=== PATIENT | male | born 1990 | race African-American/Black ===

== ENCOUNTER 2024-01-04 08:31 | Inpatient (IN) | payer OTHER, SELFPAY ==
[2024-01-04] VITALS (14 sets, daily range): BP systolic 139–170; BP diastolic 72–98; PULSE 68–84; RESP 14–18; TEMP 36.6–37.1; O2SAT 96–100; BMI 25.8; BMI 27.6
--- NOTE | ~2024-01-04 | CT_ITS ---
EXAMINATION: CT ABDOMEN AND PELVIS WITH CONTRAST CLINICAL INFORMATION: Lower abdominal pain COMPARISON: None available. TECHNIQUE: Multidetector volumetric images were obtained from the superior aspect of the liver through the pubic symphysis following administration 85 mL of Omnipaque 350 intravenous contrast. Sagittal and coronal reformatted images were obtained on the technologist's workstation. Oral contrast: No This CT examination was performed using dose optimization techniques as appropriate, variously including the following: *Automated exposure control *Adjustment of mA and/or kV according to patient size (this includes techniques or standardized protocols for targeted exams where dose is matched to indication/reason for exam; i.e. extremities or head) *Use of iterative reconstruction technique DLP: 402 mGy-cm FINDINGS: LUNG BASES: The visualized lung bases are unremarkable. LIVER, GALLBLADDER, AND BILIARY TREE: The liver is diffusely low in attenuation compatible with steatosis with some sparing adjacent to the gallbladder. No biliary ductal dilatation is evident. The gallbladder is unremarkable with no evidence of radiopaque gallstones, gallbladder wall thickening, or obvious pericholecystic inflammatory changes. PANCREAS: The pancreatic head appears edematous. There is infiltration about the pancreatic head extending posteriorly about the duodenum and into the retroperitoneum. The pancreatic tail appears atrophic. The pancreatic duct is dilated in the tail, measuring up to 10 mm. SPLEEN: Unremarkable. ADRENAL GLANDS: Unremarkable. KIDNEYS AND URETERS: The kidneys are normal in size, shape, and attenuation. No hydronephrosis, hydroureter, or calculi seen. No perinephric stranding. A retroaortic left renal vein is incidentally noted. BLADDER: Unremarkable. GASTROINTESTINAL TRACT: The small and large bowel are unremarkable. The appendix is identified. ABDOMINAL WALL: No significant hernia is appreciated. LYMPH NODES: Normal. VASCULAR: Unremarkable. PELVIC VISCERA: Unremarkable. OSSEOUS STRUCTURES: Unremarkable. CT/CT abdomen pelvis w IV con IMPRESSION: 1. Edematous pancreatic head with surrounding inflammatory change, suspicious for acute pancreatitis. However, pancreatic carcinoma could have a similar appearance. Suggest close follow-up to confirm clearing and pancreatic MRI if symptoms persist. 2. Atrophic pancreatic tail with dilated pancreatic duct, perhaps the sequela of chronic pancreatitis. 3. Marked Hepatic steatosis. Fleischner guidelines were followed. Electronically signed by: Pino Nur MD 01/04/2024 12:12 PM [facility]
[2024-01-04 09:11] LABS: MANUAL DIFF FLAG NO
[2024-01-04 09:17] LABS: Basophils Absolute Auto 0.1 X10*3/uL (0.0-0.2); Basophils Percent Auto 1.4 % (0-2); Eosinophils Absolute Auto 0.1 X10*3/uL (0.0-0.4); Eosinophils Percent Auto 2.2 % (0-4); Hematocrit 42.6 % (42.0-52.0); Hemoglobin 14.8 g/dl (14.0-18.0); Imm Gran Abs Auto 0.01 X10*3/uL (0.00-0.03); Imm Gran Pct Auto 0.2 % (0.0-0.4); Lymphocytes Absolute Auto 1.9 X10*3/uL (1.2-4.9); Lymphocytes Percent Auto 37.6 % (20-40); Mean Corpuscular HGB Conc 34.7 g/dl (31.0-36.0); Mean Corpuscular Hemoglobin 32.5 pg (27.0-33.0); Mean Corpuscular Volume 93.4 fL (80.0-98.0); Mean Platelet Volume 9.9 fL (9.4-12.4); Monocytes Absolute Auto 0.6 X10*3/uL (0.1-1.2); Monocytes Percent Auto 11.1 % (2-11); Neutrophils Absolute Auto 2.4 x10*3/uL (2.0-8.3); Neutrophils Percent Auto 47.5 % (45-73); Platelet Count 210 X10*3/uL (160-400); Red Blood Count 4.56 X10*6/uL (4.60-5.80); Red Cell Distribution Width 14.2 % (11.0-16.0); White Blood Count 5.1 X10*3/uL (4.8-10.8)
[2024-01-04 09:39] LABS: Alanine Aminotransferase 289 U/L (0-40); Albumin Level 4.7 g/dL (3.5-5.0); Alkaline Phosphatase 67 U/L (39-117); Anion Gap 18 (12-20); Aspartate Amino Transferase 280 U/L (5-37); Bilirubin Direct 0.2 mg/dL (0.0-0.5); Bilirubin Total 0.6 mg/dL (0.0-1.0); Blood Urea Nitrogen 15 mg/dL (9-16); Calcium 9.8 mg/dL (8.4-10.2); Carbon Dioxide 22 mmol/L (22-29); Chloride 102 mmol/L (96-108); Creatinine Clr Calc Pharmacy 124.7; Estimated Glomerular Filt Rate > 60; Glucose Random 112 mg/dL (60-115); Lipase 72 U/L (8-78); Potassium 4.7 mmol/L (3.3-5.1); Sodium 137 mmol/L (135-145); Total Protein 8.2 g/dL (6.5-8.0)
[2024-01-04 09:40] LABS: Lactic Acid 2.6 mmol/L (0.5-2.0)
--- NOTE | 2024-01-04 10:30 | ED.GENADULT ---
HPI - General Adult General Chief complaint: Abdominal Pain Stated complaint: High blood sugar, abd pain Time Seen by Provider: 01/04/24 10:29 Source: patient Mode of arrival: ambulatory Limitations: no limitations History of Present Illness ED Provider: Yahaira Cheney PA-C HPI narrative: Patient is a 33 year old assigned male at with a history of alcohol abuse and chronic pancreatitis presenting to the emergency department today with abdominal pain, diarrhea, and vomiting. Patient states that he was sober for awhile and restarted drinking on 12/31/2023. Patient states that he began to have abdominal pain, nausea, and vomiting last night into today. Patient denies any dizziness, lightheadedness, fever, chills, blurry vision, double vision, loss of vision, chest pain, difficulty breathing, shortness of breath, back pain, night sweats, pain with urination, increased urinary frequency, increased urinary urgency, blood in his urine or stool, syncope or a near syncopal episode, recent trauma or falls, bowel incontinence, bladder incontinence, or any other complaints at this time. Relieving factors: none Exacerbating factors: none Associated symptoms: nausea/vomiting Treatments prior to arrival: none Related Data Home Medications ?Medication ?Instructions ?Recorded ?Confirmed amlodipine 5 mg tablet 5 mg PO DAILY 01/04/24 01/04/24 insulin aspart U-100 100 unit/mL 2 - 10 unit subcut TID 01/04/24 01/04/24 (3 mL) subcutaneous pen (Novolog FlexPen U-100 Insulin aspart) insulin glargine 100 unit/mL (3 3 unit subcut BEDTIME 01/04/24 01/04/24 mL) subcutaneous pen (Lantus Solostar U-100 Insulin) omeprazole 20 mg capsule,delayed 20 mg PO DAILY@0630 01/04/24 01/04/24 release Allergies Allergy/AdvReac Type Severity Reaction Status Date / Time No Known Allergies Allergy Verified 01/04/24 08:54 Review of Systems Constitutional: Constitutional: Reports no additional constitutional complaints, Denies chills, Denies fever(s) and Denies night sweats Eyes: Eyes: Reports no additional eye complaints, Denies blurry vision, Denies change in vision, Denies diplopia, Denies eye discharge, Denies loss of vision and Denies eye pain ENT: Denies dizziness Cardiovascular: Cardiovascular: Reports no additional cardiovascular complaints, Denies chest pain, Denies lightheadedness, Denies Loss of Consciousness and Denies dyspnea Respiratory: Respiratory: Reports no additional respiratory complaints and Denies dyspnea Gastrointestinal: Gastrointestinal: Reports no additional gastrointestinal complaints, Reports abdominal pain, Denies melena, Denies hematochezia, Denies change in bowel habits, Denies change in stool character, Reports nausea and Reports vomiting Genitourinary: Genitourinary: Reports no additional male genitourinary complaints, Denies hematuria, Denies oliguria, Denies difficulty urinating, Denies dysuria, Denies urinary frequency, Denies urinary hesitancy, Denies urinary incontinence and Denies urinary urgency Musculoskeletal: Musculoskeletal: Reports no additional musculoskeletal complaints, Denies numbness and Denies tingling Neurologic: Denies dizziness, Denies loss of vision, Denies numbness and Denies tingling Psychiatric: Psychiatric: Reports no additional psychiatric complaints Endocrine: Endocrine: Reports no additional endocrine complaints Hematologic/Lymphatic: Hematologic/Lymphatic: Reports no additional hematologic/lymphatic complaints Allergic/Immunologic: Allergic/Immunologic: Reports no additional allergic/immunologic complaints PMFSH Past Medical History Attestation statement: The following information was validated with the patient. Source: old records reviewed and nursing notes reviewed Social History Social History Smoked in Last 30 Days: Yes Use of substances other than those prescribed or required for medical reasons: No Advance Directives: No Advance Directives Information Provided: Yes Do you have a plan to hurt others: No Plan Physical Exam ED Vital Signs: Vital Signs - 24 hr 01/04/24 08:51 01/04/24 11:06 01/04/24 11:32 Temperature 98.2 F 98.6 F Pulse Rate 80 72 Respiratory Rate 18 16 14 Blood Pressure 151/98 H 144/91 H Pulse Oximetry 100 100 Oxygen Delivery Method Room Air Room Air 01/04/24 11:45 01/04/24 12:54 Temperature 98.2 F Pulse Rate 78 Respiratory Rate 18 16 Blood Pressure 140/89 H Pulse Oximetry 100 Oxygen Delivery Method Room Air BMI result Body Mass Index 25.8 Const General: cooperative, no acute distress, alert and awake Nutritional Appearance: well nourished Orientation/consciousness: patient oriented x3 Limitations: no limitations HENMT Head: Yes normal to inspection and Yes atraumatic Ears: hearing grossly normal bilaterally and external ears normal General nose exam: Normal external nose present, no nasal discharge noted and no epistaxis Face and sinus: Yes normal facial exam, No abrasion and No laceration Mouth: Normal oral and palatal mucosa present, no drooling and no muffled voice Eyes General: appearance normal, both eyes and all related structures Periorbital: periorbital findings normal Eyelids: Yes eyelids normal Conjunctivae: conjunctivae normal Pupils: Equal, round and reactive pupils present EOM: EOMs intact bilaterally Neck Neck: Yes normal visual inspection, Yes full ROM and Yes no lymphadenopathy Chest Chest palpation & inspection: normal inspection of the chest Resp Effort & Inspection: normal respiratory effort and able to speak in complete sentences GI Inspection: Yes normal to inspection Palpation (GI): Soft to palpation, not firm, nontender, no guarding and not rigid Neuro General: patient oriented x3 and moves all extremities Cranial nerves: Yes Equal, round and reactive pupils present Cognition (Neuro): normal cognition Extrem General: Yes normal to inspection, Yes full ROM and Yes capillary refill normal Psych Appearance: grossly normal Mental Status: mental status grossly normal Affect: normal affect Attitude: cooperative Thought process: Normal thought process present Thought content: Normal thought content present Insight: Good insight present (Psych) Medications Administered Generic Name Dose Route Start Last Admin Trade Name Elodia PRN Reason Stop Dose Admin Phenobarbital Sodium 198 mg 01/04/24 15:00 01/04/24 14:50 Phenobarbital Sodium 130 Mg/Ml Vial Im Q3hx2 IM 01/04/24 18:01 198 mg Q3H ONOFRE Administration Discontinued Medications Generic Name Dose Route Start Last Admin Trade Name Elodia PRN Reason Stop Dose Admin Hydromorphone HCl 1 mg 01/04/24 11:34 01/04/24 11:45 Hydromorphone Hcl 1 Mg/Ml Syringe IVPUSH 01/04/24 11:35 1 mg ONCE ONE Administration Protocol Hydromorphone HCl 1 mg 01/04/24 12:32 01/04/24 12:51 Hydromorphone Hcl 1 Mg/Ml Syringe IVPUSH 01/04/24 12:33 1 mg ONCE ONE Administration Protocol Sodium Chloride 1,000 mls @ 999 mls/hr 01/04/24 11:00 01/04/24 12:56 Ns IV 01/04/24 12:00 Infused .Q1H1M ONOFRE Infusion Iohexol 85 ml 01/04/24 11:21 01/04/24 11:21 Iohexol 350 Mg/Ml 75 Ml Infus..Btl IV 01/04/24 11:22 85 ml ONCE ONE Administration Lorazepam 1 mg 01/04/24 10:46 01/04/24 11:08 Lorazepam 2 Mg/Ml Vial IVPUSH 01/04/24 10:47 1 mg ONCE ONE Administration Morphine Sulfate 4 mg 01/04/24 10:46 01/04/24 11:06 Morphine Sulfate 4 Mg/Ml Cartridge IVPUSH 01/04/24 10:47 4 mg ONCE ONE Administration Protocol Ondansetron HCl 4 mg 01/04/24 10:46 01/04/24 11:06 Ondansetron Hcl 4 Mg/2 Ml Vial IVPUSH 01/04/24 10:47 4 mg ONCE ONE Administration Pantoprazole Sodium 40 mg 01/04/24 11:34 01/04/24 11:44 Pantoprazole Sodium 40 Mg/10 Ml Vial IVPUSH 01/04/24 11:35 40 mg ONCE ONE Administration Phenobarbital Sodium 265 mg 01/04/24 11:00 01/04/24 11:44 Phenobarbital Sodium 130 Mg/Ml Im Once IM 01/04/24 11:01 265 mg ONCE ONE Administration Sucralfate 1 gm 01/04/24 11:34 01/04/24 11:45 Sucralfate 1 Gm Tablet PO 01/04/24 11:35 1 gm ONCE ONE Administration Medical Decision Making Medical Decision Making [facility] Narrative: Patient is a 33 year old assigned male at with a history of alcohol abuse and chronic pancreatitis presenting to the emergency department today with abdominal pain, diarrhea, and vomiting. Patient's physical exam was as noted in the physical exam portion of this note. Patient's blood work showed an elevated initial lactic of 2.6 as well as elevated LFTs (AST 280, ALT 289). Patient's CT abd/pelvis showed evidence of acute on chronic pancreatitis. I consulted with GI who agreed with my plan of medical admission for acute on chronic pancreatitis and alcohol withdrawal. I spoke to the hospitalist team who agreed to admission. I explained my physical exam findings as well as all test results to the patient. I answered all questions asked by the patient. Patient received multiple doses of IV pain medication which, upon re-evaluation, he stated it helped his symptoms significantly. Patient verbalized agreement and understanding with this treatment plan and admission. Differential Diagnosis Differential Diagnoses: The differential diagnosis associated with the presentation includes Acute on chronic pancreatitis Abdominal pain Nausea Vomiting Admission/Observation Consideration of admission/observation: Escalation of care including admission/observation considered Patient admitted. Consult Healthcare Provider Management of the patient was discussed with: Hospitalist (agreed to admission as noted in the MDM Rationale portion of this note.) and [employer] (spoke to GI as noted in the MDM Rationale portion of this note.) Lab Data [facility] Lab Attestation statement: I reviewed the patient's lab results. My interpretation of these results are in the MDM Rationale portion of this note. 01/04/24 09:07 01/04/24 09:07 Labs: Lab Results 01/04/24 01/04/24 01/04/24 Range/Units 09:06 09:07 12:08 WBC 5.1 (4.8-10.8) X10*3/uL RBC 4.56 L (4.60-5.80) X10*6/uL Hgb 14.8 (14.0-18.0) g/dl Hct 42.6 (42.0-52.0) % MCV 93.4 (80.0-98.0) fL MCH 32.5 (27.0-33.0) pg MCHC 34.7 (31.0-36.0) g/dl RDW 14.2 (11.0-16.0) % Plt Count 210 (160-400) X10*3/uL MPV 9.9 (9.4-12.4) fL Immature Gran % (Auto) 0.2 (0.0-0.4) % Neut % (Auto) 47.5 (45-73) % Lymph % (Auto) 37.6 (20-40) % Door % (Auto) 11.1 H (2-11) % Eos % (Auto) 2.2 (0-4) % Baso % (Auto) 1.4 (0-2) % Lymph # (Auto) 1.9 (1.2-4.9) X10*3/uL Door # (Auto) 0.6 (0.1-1.2) X10*3/uL Eos # (Auto) 0.1 (0.0-0.4) X10*3/uL Baso # (Auto) 0.1 (0.0-0.2) X10*3/uL Abs Immat Gran (auto) 0.01 (0.00-0.03) X10*3/uL Absolute Neuts (auto) 2.4 (2.0-8.3) x10*3/uL Absolute Nucleated RBC 0.000 (0.0-0.012) X10*3/uL Nucleated RBC % (auto) 0.0 (0.0-0.2) /100WBC Sodium 137 (135-145) mmol/L Potassium 4.7 (3.3-5.1) mmol/L Chloride 102 (96-108) mmol/L Carbon Dioxide 22 (22-29) mmol/L Anion Gap 18 (12-20) BUN 15 (9-16) mg/dL Creatinine 0.78 (0.5-1.4) mg/dL Estim Creat Clear Calc 124.7 Estimated GFR > 60 POC Glucose 92 (60-115) mg/dL Random Glucose 112 (60-115) mg/dL Lactic Acid 2.6 H* (0.5-2.0) mmol/L Lactic Acid F/U @ 2Hr (0.5-2.0) mmol/L Calcium 9.8 (8.4-10.2) mg/dL Total Bilirubin 0.6 (0.0-1.0) mg/dL Direct Bilirubin 0.2 (0.0-0.5) mg/dL AST 280 H (5-37) U/L ALT 289 H (0-40) U/L Alkaline Phosphatase 67 (39-117) U/L Total Protein 8.2 H (6.5-8.0) g/dL Albumin 4.7 (3.5-5.0) g/dL Amylase 63 (28-100) U/L Lipase 72 (8-78) U/L 01/04/24 Range/Units 13:48 WBC (4.8-10.8) X10*3/uL RBC (4.60-5.80) X10*6/uL Hgb (14.0-18.0) g/dl Hct (42.0-52.0) % MCV (80.0-98.0) fL MCH (27.0-33.0) pg MCHC (31.0-36.0) g/dl RDW (11.0-16.0) % Plt Count (160-400) X10*3/uL MPV (9.4-12.4) fL Immature Gran % (Auto) (0.0-0.4) % Neut % (Auto) (45-73) % Lymph % (Auto) (20-40) % Door % (Auto) (2-11) % Eos % (Auto) (0-4) % Baso % (Auto) (0-2) % Lymph # (Auto) (1.2-4.9) X10*3/uL Door # (Auto) (0.1-1.2) X10*3/uL Eos # (Auto) (0.0-0.4) X10*3/uL Baso # (Auto) (0.0-0.2) X10*3/uL Abs Immat Gran (auto) (0.00-0.03) X10*3/uL Absolute Neuts (auto) (2.0-8.3) x10*3/uL Absolute Nucleated RBC (0.0-0.012) X10*3/uL Nucleated RBC % (auto) (0.0-0.2) /100WBC Sodium (135-145) mmol/L Potassium (3.3-5.1) mmol/L Chloride (96-108) mmol/L Carbon Dioxide (22-29) mmol/L Anion Gap (12-20) BUN (9-16) mg/dL Creatinine (0.5-1.4) mg/dL Estim Creat Clear Calc Estimated GFR POC Glucose (60-115) mg/dL Random Glucose (60-115) mg/dL Lactic Acid (0.5-2.0) mmol/L Lactic Acid F/U @ 2Hr 1.0 (0.5-2.0) mmol/L Calcium (8.4-10.2) mg/dL Total Bilirubin (0.0-1.0) mg/dL Direct Bilirubin (0.0-0.5) mg/dL AST (5-37) U/L ALT (0-40) U/L Alkaline Phosphatase (39-117) U/L Total Protein (6.5-8.0) g/dL Albumin (3.5-5.0) g/dL Amylase (28-100) U/L Lipase (8-78) U/L Independent Interpretation I performed an independent interpretation of an: CT Scan Interpretation: My interpretation is in agreement with the radiologist's impression of this imaging study. EXAMINATION: CT ABDOMEN AND PELVIS WITH CONTRAST CLINICAL INFORMATION: Lower abdominal pain COMPARISON: None available. TECHNIQUE: Multidetector volumetric images were obtained from the superior aspect of the liver through the pubic symphysis following administration 85 mL of Omnipaque 350 intravenous contrast. Sagittal and coronal reformatted images were obtained on the technologist's workstation. Oral contrast: No This CT examination was performed using dose optimization techniques as appropriate, variously including the following: *Automated exposure control *Adjustment of mA and/or kV according to patient size (this includes techniques or standardized protocols for targeted exams where dose is matched to indication/reason for exam; i.e. extremities or head) *Use of iterative reconstruction technique DLP: 402 mGy-cm FINDINGS: LUNG BASES: The visualized lung bases are unremarkable. LIVER, GALLBLADDER, AND BILIARY TREE: The liver is diffusely low in attenuation compatible with steatosis with some sparing adjacent to the gallbladder. No biliary ductal dilatation is evident. The gallbladder is unremarkable with no evidence of radiopaque gallstones, gallbladder wall thickening, or obvious pericholecystic inflammatory changes. PANCREAS: The pancreatic head appears edematous. There is infiltration about the pancreatic head extending posteriorly about the duodenum and into the retroperitoneum. The pancreatic tail appears atrophic. The pancreatic duct is dilated in the tail, measuring up to 10 mm. SPLEEN: Unremarkable. ADRENAL GLANDS: Unremarkable. KIDNEYS AND URETERS: The kidneys are normal in size, shape, and attenuation. No hydronephrosis, hydroureter, or calculi seen. No perinephric stranding. A retroaortic left renal vein is incidentally noted. BLADDER: Unremarkable. GASTROINTESTINAL TRACT: The small and large bowel are unremarkable. The appendix is identified. ABDOMINAL WALL: No significant hernia is appreciated. LYMPH NODES: Normal. VASCULAR: Unremarkable. PELVIC VISCERA: Unremarkable. OSSEOUS STRUCTURES: Unremarkable. CT/CT abdomen pelvis w IV con IMPRESSION: 1. Edematous pancreatic head with surrounding inflammatory change, suspicious for acute pancreatitis. However, pancreatic carcinoma could have a similar appearance. Suggest close follow-up to confirm clearing and pancreatic MRI if symptoms persist. 2. Atrophic pancreatic tail with dilated pancreatic duct, perhaps the sequela of chronic pancreatitis. 3. Marked Hepatic steatosis. Fleischner guidelines were followed. Electronically signed by: Pino Nur MD 01/04/2024 12:12 PM [facility] Dictated By: Pino Nur MD Signed By: Electronically signed by Pino Nur MD 01/04/24 1212 Radiology Impression Discussion of test interpretation with radiology: I have reviewed the radiologist's reading. Critical Care Time Critical Care Time Critical Care Time: Yes Total Critical Care Time: 47 Attestation: I spent 47 minutes of Critical Care Time with this patient. This does not include time spent on separately reported billable procedures. Discharge Plan Discharge Clinical Impression: Acute on chronic pancreatitis, Alcohol withdrawal Patient Disposition: Admitted As Inpatient
--- NOTE | 2024-01-04 10:41 | PC.NURSE ---
Pt presents to ED from home, reports LUQ ABD pain and N/V for past 2 days, has hx of pancreatitis and reports it feels like that. Denies daily drinking, report he drank some alcohol on Wednesday and thinks that triggers it. Pain 10/10 in LUQ. Alert and oriented, breathing even and unlabored, skin warm and slightly clammy.
[2024-01-04] MEDS: 0.9 % Sodium Chloride 1,000 ML 999 ML IV (11:06)
[2024-01-04] MEDS: ondansetron HCL 4 MG/2 ML VIAL IVPUSH (11:06)
[2024-01-04] MEDS: Morphine Sulfate 4 MG/ML CARTRIDGE IVPUSH (11:06)
[2024-01-04] MEDS: LORazepam 2 MG/ML VIAL 1 MG IVPUSH (11:08)
[2024-01-04 11:09] LABS: Reflex Lactate? Lactic Acid Added
[2024-01-04] MEDS: iohexoL 350 MG/ML 75 ML INFUS..BTL 85 ML IV (11:21)
[2024-01-04] MEDS: Pantoprazole Sodium 40 MG/10 ML VIAL IVPUSH (11:44)
[2024-01-04] MEDS: PHENobarbitaL sodium 130 MG/ML IM ONCE 265 MG IM (11:44)
[2024-01-04] MEDS: HYDROmorphone HCl 1 MG/ML SYRINGE IVPUSH ×3 (11:45→20:06)
[2024-01-04] MEDS: Sucralfate 1 GM TABLET PO (11:45)
[2024-01-04 12:13] LABS: Glucose, Whole Blood 92 mg/dL (60-115)
[2024-01-04 12:48] LABS: Amylase 63 U/L (28-100)
--- NOTE | 2024-01-04 12:55 | PC.NURSE ---
Addendum entered by Kermit Acevedo 01/04/24 14:06: HIS POC AT 1208 WAS 92 Original Note: PT OFFERED CLEAR LIQUIDS, HE REPORTS HIS BLOOD SUGAR IS TRENDING DOWN,
--- NOTE | 2024-01-04 13:54 | PHA.MEDREC ---
Addendum entered by Romeo Stephens 01/04/24 13:57: reviewed Original Note: Pharmacy Consult ? Medication Reconciliation Pharmacy has completed the medication reconciliation. Spoke to patient to confirm med list. Patient states he is no longer taking Acamprosate 666 cmg, Lisinopril-HCTZ 20/25mg, Vitamin B6, Vitamin B1.
[2024-01-04] MEDS: PHENobarbitaL sodium 130 MG/ML VIAL IM Q3Hx2 198 MG IM ×2 (14:50→17:49)
--- NOTE | 2024-01-04 15:19 | PM.IMHP ---
History of Present Illness Date of Service: 01/04/24 Chief Complaint: pain abdominal pain A 33-year-old male with a history of alcohol use disorder, consuming approximately 20 nips of vodka daily, and a prior history of alcohol withdrawal seizures, presents with severe abdominal pain that began yesterday. The pain is localized to the epigastric region and is associated with nausea, vomiting, and one episode of diarrhea. Lab work revealed a normal lipase level, but a CT scan of the abdomen and pelvis showed inflammatory changes around the pancreas, consistent with acute pancreatitis. The patient is currently unable to tolerate oral intake . Review of Systems Review of Systems: Gen: no fever Resp: no sob, no cough CV: no chest, no SAGE, no leg edema GI: No n/v, no abd pain Neuro: No confusion Yes all other systems are reviewed and are negative [facility] Social History Household Members: Spouse Housing: House Patient Tobacco Use Status: Current everyday Tobacco user Tobacco use type: Cigarette Smoked in Last 30 Days: Yes e-Cigarette/Vaping Use: Former Use Patient Interested in Nicotine Replacement: No Patient Given Instructions on How to Stop Smoking: No Second Hand Smoke Exposure: No Use of substances other than those prescribed or required for medical reasons: Yes Substance Use Type: Marijuana Substance Use Frequency: Monthly Last Used Substance: Weeks (ago) Currently Displaying Signs/Symptoms of Drug Intoxication Withdrawal: No Any prior treatment program specific to substance use: No Have you been hit, kicked, punched, or otherwise hurt by someone within the past year? If so, by whom?: No Do you feel safe in your current relationship?: Yes Is there a partner from a previous relationship who is making you feel unsafe now?: No Are you made to feel afraid or neglected: No Advance Directives: No Advance Directives Information Provided: Yes Do you have a plan to hurt others: No Plan Recently lost weight without trying: No Eating poorly because of decreased appetite: No Nutrition Risks: No Nutritional Risk Poor oral hygiene: No service: No Meds Allergies Allergy/AdvReac Type Severity Reaction Status Date / Time No Known Allergies Allergy Verified 01/04/24 08:54 Active Medications: Current Medications Acetaminophen (Acetaminophen 325 Mg Tablet) 650 mg PO Q6H PRN PRN Reason: Pain, Mild (Pain Scale 1-3), fever or headache Al Hydroxide/Mg Hydroxide (Magnesium Hydrox/Alum Hydrox 30 Ml Oral.Susp) 30 ml PO Q4H PRN PRN Reason: Heartburn Amlodipine Besylate (Amlodipine Besylate 5 Mg Tablet) 5 mg PO DAILY [facility]; Protocol Calcium Carbonate (Calcium Carbonate 750 Mg Tab.Chew) 750 mg PO Q4H PRN PRN Reason: Heartburn Glucose (Glucose Gel 15 Gm Gel..Gram.) 15 gm PO Q15M PRN; Protocol PRN Reason: per Hypoglycemia Standing Ord. Hydromorphone HCl (Hydromorphone Hcl 1 Mg/Ml Syringe) 0.5 mg IVPUSH Q4H PRN; Protocol PRN Reason: Pain, Severe (Pain Scale 7-10) Dextrose (D10) 250 mls @ 750 mls/hr IV Q15M PRN; Protocol PRN Reason: per Hypoglycemia Standing Ord. Lactated Ringer's (Lr) 1,000 mls @ 150 mls/hr IVCONT .Q6H40M [facility] Insulin Human Lispro (Insulin Lispro 100 Unit/Ml 3 Ml Vial) 0 unit SUBCUT QIDACHS [facility]; Protocol Magnesium Hydroxide (Milk Of Magnesia 30 Ml Oral.Susp) 30 ml PO DAILY PRN PRN Reason: Constipation Melatonin (Melatonin 3 Mg Tablet) 6 mg PO BEDTIME PRN PRN Reason: Insomnia Omeprazole (Omeprazole 20 Mg Capsule.Dr) 20 mg PO DAILY@0630 [facility] Ondansetron HCl (Ondansetron Hcl 4 Mg/2 Ml Vial) 4 mg IVPUSH Q8H PRN PRN Reason: Nausea and Vomiting Pharmacy Consult (Consult Rx Etoh Phenob Im/Po) 1 each MISCELLANE ONCE PRN; Protocol PRN Reason: Consult order Pharmacy Consult (Consult Rx Etoh Phenob Im/Po) 1 each MISCELLANE ONCE PRN; Protocol PRN Reason: Consult order Phenobarbital (Phenobarbital 15 Mg Tablet) 45 mg PO BID [facility] Stop: 01/06/24 21:01 Phenobarbital (Phenobarbital 15 Mg Tablet) 15 mg PO BID [facility] Stop: 01/08/24 21:01 Phenobarbital (Phenobarbital 15 Mg Tablet) 15 mg PO DAILY [facility] Stop: 01/10/24 09:01 Phenobarbital Sodium (Phenobarbital Sodium 130 Mg/Ml Vial Im Q3hx2) 198 mg IM Q3H [facility] Stop: 01/04/24 18:01 Last Admin: 01/04/24 14:50 Dose: 198 mg Polyethylene Glycol (Polyethylene Glycol 3350 17 Gm Powd.Pack) 17 gm PO DAILY PRN PRN Reason: Constipation Sodium Chloride (0.9 % Sodium Chloride Flush 3 Ml Syringe) 3 ml IVFLUSH QSHIFT [facility] Home Medications ?Medication ?Instructions ?Recorded ?Confirmed ?Last Taken ?Type amlodipine 5 mg tablet 5 mg PO DAILY 01/04/24 01/04/24 01/03/24 History insulin aspart U-100 100 unit/mL 2 - 10 unit subcut TID 01/04/24 01/04/24 01/03/24 History (3 mL) subcutaneous pen (Novolog FlexPen U-100 Insulin aspart) insulin glargine 100 unit/mL (3 3 unit subcut BEDTIME 01/04/24 01/04/24 01/03/24 History mL) subcutaneous pen (Lantus Solostar U-100 Insulin) omeprazole 20 mg capsule,delayed 20 mg PO DAILY@0630 01/04/24 01/04/24 01/03/24 History release Physical Exam Vital Signs and Narrative: Vital Signs: Last Vital Signs Temp 98.1 F 01/04/24 14:22 Pulse 74 01/04/24 14:22 Resp 16 01/04/24 14:22 BP 139/86 01/04/24 14:22 Pulse Ox 99 01/04/24 14:22 O2 Del Method Room Air 01/04/24 14:22 BMI result Body Mass Index 25.8 Results Labs 01/04/24 09:07 01/04/24 09:07 Labs: Laboratory Results - last 24 hr 01/04/24 01/04/24 01/04/24 09:06 09:07 12:08 MCV 93.4 MCH 32.5 MCHC 34.7 RDW 14.2 Plt Count 210 MPV 9.9 Immature Gran % (Auto) 0.2 Neut % (Auto) 47.5 Lymph % (Auto) 37.6 [place] % (Auto) 11.1 H Eos % (Auto) 2.2 Baso % (Auto) 1.4 Lymph # (Auto) 1.9 [place] # (Auto) 0.6 Eos # (Auto) 0.1 Baso # (Auto) 0.1 Abs Immat Gran (auto) 0.01 Absolute Neuts (auto) 2.4 Absolute Nucleated RBC 0.000 Nucleated RBC % (auto) 0.0 Anion Gap 18 Estim Creat Clear Calc 124.7 Estimated GFR > 60 POC Glucose 92 Random Glucose 112 Lactic Acid 2.6 H* Lactic Acid F/U @ 2Hr Calcium 9.8 Total Bilirubin 0.6 Direct Bilirubin 0.2 AST 280 H ALT 289 H Alkaline Phosphatase 67 Total Protein 8.2 H Albumin 4.7 Amylase 63 Lipase 72 01/04/24 13:48 MCV MCH MCHC RDW Plt Count MPV Immature Gran % (Auto) Neut % (Auto) Lymph % (Auto) [place] % (Auto) Eos % (Auto) Baso % (Auto) Lymph # (Auto) [place] # (Auto) Eos # (Auto) Baso # (Auto) Abs Immat Gran (auto) Absolute Neuts (auto) Absolute Nucleated RBC Nucleated RBC % (auto) Anion Gap Estim Creat Clear Calc Estimated GFR POC Glucose Random Glucose Lactic Acid Lactic Acid F/U @ 2Hr 1.0 Calcium Total Bilirubin Direct Bilirubin AST ALT Alkaline Phosphatase Total Protein Albumin Amylase Lipase Imaging Radiologist's Impressions: Impressions Abdomen/Pelvis CT 01/04/24 10:46 IMPRESSION: 1. Edematous pancreatic head with surrounding inflammatory change, suspicious for acute pancreatitis. However, pancreatic carcinoma could have a similar appearance. Suggest close follow-up to confirm clearing and pancreatic MRI if symptoms persist. 2. Atrophic pancreatic tail with dilated pancreatic duct, perhaps the sequela of chronic pancreatitis. 3. Marked Hepatic steatosis. Fleischner guidelines were followed. Electronically signed by: Pino Nur MD 01/04/2024 12:12 PM [facility] Assessment and Plan (1) Alcohol withdrawal: Status: Acute (2) Acute on chronic pancreatitis: Status: Acute Plan 33-year-old male with history of insulin-dependent diabetes, alcohol use disorder is tension with abdominal pain and finding on the CT scan consistent with acute pancreatitis, also at risk of alcohol withdrawal. Acute pancreatitis npo ivf dilaudid for pain Alohol use disorder and high risk for withdrawal start phenobarbital protol folic acid and thiamine replacement insulin dependent diabetes Sliding scale insulin while dvt prophylaxis lovenox full code at least 2 midnights admit for treatment of acute pancreatitis and at risk for alcohol withdrawal Quality Stroke Does the patient have a stroke diagnosis?: No VTE Prior VTE?: No VTE Risk Level:: Medical - moderate - high VTE Device Contraindication: N/A - Device Ordered VTE Drug Contraindication: N/A - Med Ordered
[2024-01-04] MEDS: HYDROmorphone HCl 1 MG/ML SYRINGE 0.5 MG IVPUSH (15:44)
[2024-01-04] MEDS: Lactated Ringers 1,000 ML 150 ML IVCONT ×2 (16:12→22:26)
[2024-01-04] MEDS: HYDROmorphone HCl 0.5 MG/0.5 ML SYRINGE IVPUSH ×2 (18:44→22:26)
[2024-01-04 20:04] LABS: Glucose, Whole Blood 141 mg/dL (60-115)
[2024-01-04] MEDS: 0.9 % Sodium Chloride Flush 3 ML SYRINGE IVFLUSH (20:07)
[2024-01-04] MEDS: oxyCODONE HCl Immed Release 5 MG TABLET PO (21:13)
[2024-01-05] VITALS (10 sets, daily range): BP systolic 143–170; BP diastolic 76–96; PULSE 65–84; RESP 16–18; TEMP 36–36.6; O2SAT 98–100
[2024-01-05] MEDS: HYDROmorphone HCl 0.5 MG/0.5 ML SYRINGE IVPUSH ×2 (01:29→04:34)
[2024-01-05] MEDS: oxyCODONE HCl Immed Release 5 MG TABLET PO ×4 (02:25→20:33)
[2024-01-05] MEDS: Lactated Ringers 1,000 ML 150 ML IVCONT ×3 (04:37→20:36)
[2024-01-05] MEDS: ondansetron HCL 4 MG/2 ML VIAL IVPUSH (05:45)
[2024-01-05] MEDS: Omeprazole 20 MG CAPSULE.DR PO (06:34)
[2024-01-05 07:24] LABS: Glucose, Whole Blood 208 mg/dL (60-115)
[2024-01-05] MEDS: Insulin Lispro 100 UNIT/ML 3 ML VIAL SUBCUT ×3 (07:57→20:34)
[2024-01-05] MEDS: amLODIPine Besylate 5 MG TABLET PO (07:58)
[2024-01-05] MEDS: PHENobarbitaL 15 MG TABLET 45 MG PO ×2 (07:59→21:03)
[2024-01-05] MEDS: HYDROmorphone HCl 0.5 MG/0.5 ML SYRINGE 1 MG IVPUSH ×5 (08:10→21:49)
--- NOTE | 2024-01-05 09:46 | MHC.CM.PN ---
IMM DELIVERED PT LIVES WITH FAMILY. INDEPENDENT WITH MOBILITY. HAS 14 HRS/WK [employer]. DIABETIC SUPPLIES VIA [employer]. +HCP PCP SONY AG NP DP: HOME WITH RESUMPTION OF [employer] IS THE GOAL. PT HAS OWN RIDE HOME. CM WILL CONTINUE TO FOLLOW FOR ANY CHANGE TO DC PLAN/NEEDS.
--- NOTE | 2024-01-05 10:21 | P.PNIM_ITS ---
Subjective Subjective Date of Service: 01/05/24 Interval History: f/u on acute pancreatitis still with severe pain Physical Exam 2 Vital Signs: Vital Signs: Last Vital Signs Temp 97.3 F 01/05/24 07:14 Pulse 65 01/05/24 07:14 Resp 16 01/05/24 07:14 BP 161/85 H 01/05/24 07:14 Pulse Ox 100 01/05/24 07:14 O2 Del Method Room Air 01/05/24 07:14 BMI result Body Mass Index 27.6 Const: Other: General: AO X 3, no acute distress Resp: CTA bilateral CVS: S1,S2,RRR GI: +BS, some epig tenderness, no distention Skin: No rash Neuro: motor grossly intact Psych: appropriate affect Objective Data Active Medications Acetaminophen (Acetaminophen 325 Mg Tablet) 650 mg PO Q6H PRN PRN Reason: Pain, Mild (Pain Scale 1-3), fever or headache Al Hydroxide/Mg Hydroxide (Magnesium Hydrox/Alum Hydrox 30 Ml Oral.Susp) 30 ml PO Q4H PRN PRN Reason: Heartburn Amlodipine Besylate (Amlodipine Besylate 5 Mg Tablet) 5 mg PO DAILY [facility]; Protocol Last Admin: 01/05/24 07:58 Dose: 5 mg Documented By: PRESTON Calcium Carbonate (Calcium Carbonate 750 Mg Tab.Chew) 750 mg PO Q4H PRN PRN Reason: Heartburn Glucose (Glucose Gel 15 Gm Gel..Gram.) 15 gm PO Q15M PRN; Protocol PRN Reason: per Hypoglycemia Standing Ord. Hydromorphone HCl (Hydromorphone Hcl 0.5 Mg/0.5 Ml Syringe) 1 mg IVPUSH Q3H PRN; Protocol PRN Reason: Pain, Severe (Pain Scale 7-10) Last Admin: 01/05/24 08:10 Dose: 1 mg Documented By: PRESTON Dextrose (D10) 250 mls @ 750 mls/hr IV Q15M PRN; Protocol PRN Reason: per Hypoglycemia Standing Ord. Lactated Ringer's (Lr) 1,000 mls @ 150 mls/hr IVCONT .Q6H40M [facility] Last Admin: 01/05/24 04:37 Dose: 150 mls/hr Documented By: CHELE Insulin Human Lispro (Insulin Lispro 100 Unit/Ml 3 Ml Vial) 0 unit SUBCUT QIDACHS [facility]; Protocol Last Admin: 01/05/24 07:57 Dose: 4 unit Documented By: PRESTON Magnesium Hydroxide (Milk Of Magnesia 30 Ml Oral.Susp) 30 ml PO DAILY PRN PRN Reason: Constipation Melatonin (Melatonin 3 Mg Tablet) 6 mg PO BEDTIME PRN PRN Reason: Insomnia Omeprazole (Omeprazole 20 Mg Capsule.Dr) 20 mg PO DAILY@0630 [facility] Last Admin: 01/05/24 06:34 Dose: 20 mg Documented By: CHELE Ondansetron HCl (Ondansetron Hcl 4 Mg/2 Ml Vial) 4 mg IVPUSH Q8H PRN PRN Reason: Nausea and Vomiting Last Admin: 01/05/24 05:45 Dose: 4 mg Documented By: CHELE Oxycodone HCl (Oxycodone Hcl Immed Release 5 Mg Tablet) 5 mg PO Q4H PRN PRN Reason: Pain, Moderate(Pain Scale 4-6) Last Admin: 01/05/24 06:33 Dose: 5 mg Documented By: CHELE Pharmacy Consult (Consult Rx Etoh Phenob Im/Po) 1 each MISCELLANE ONCE PRN; Protocol PRN Reason: Consult order Phenobarbital (Phenobarbital 15 Mg Tablet) 45 mg PO BID [facility] Stop: 01/06/24 21:01 Last Admin: 01/05/24 07:59 Dose: 45 mg Documented By: PRESTON Phenobarbital (Phenobarbital 15 Mg Tablet) 15 mg PO BID [facility] Stop: 01/08/24 21:01 Phenobarbital (Phenobarbital 15 Mg Tablet) 15 mg PO DAILY [facility] Stop: 01/10/24 09:01 Polyethylene Glycol (Polyethylene Glycol 3350 17 Gm Powd.Pack) 17 gm PO DAILY PRN PRN Reason: Constipation Sodium Chloride (0.9 % Sodium Chloride Flush 3 Ml Syringe) 3 ml IVFLUSH QSHIFT [facility] Last Admin: 01/05/24 08:13 Dose: Not Given Documented By: PRESTON Non-Admin Reason: IV Running Labs 01/04/24 09:07 01/04/24 09:07 Labs: Laboratory Results - last 24 hr 01/04/24 01/04/24 01/04/24 09:07 12:08 13:48 POC Glucose 92 Lactic Acid F/U @ 2Hr 1.0 Amylase 63 01/04/24 01/05/24 19:59 07:16 POC Glucose 141 H 208 H Lactic Acid F/U @ 2Hr Amylase Assessment and Plan (1) Acute on chronic pancreatitis: Status: Acute Plan 33-year-old male with history of insulin-dependent diabetes, alcohol use disorder is tension with abdominal pain and finding on the CT scan consistent with acute pancreatitis, also at risk of alcohol withdrawal. Acute pancreatitis clear liquis diet ivf dilaudid for pain consider gi consult Alohol use disorder and high risk for withdrawal continue phenobarbital protol folic acid and thiamine replacement insulin dependent diabetes Sliding scale insulin while dvt prophylaxis lovenox full code at least 2 midnights admit for treatment of acute pancreatitis and at risk for alcohol withdrawal Quality Stroke Does the patient have a stroke diagnosis?: No VTE Prior VTE?: No VTE Risk Level:: Medical - moderate - high VTE Device Contraindication: N/A - Device Ordered VTE Drug Contraindication: N/A - Med Ordered
[2024-01-05] MEDS: Folic Acid 1 MG TABLET PO (11:08)
[2024-01-05] MEDS: Thiamine HCL 100 MG TABLET PO (11:08)
[2024-01-05] MEDS: Enoxaparin Sodium 40 MG/0.4 ML SYRINGE SUBCUT (11:08)
[2024-01-05 11:35] LABS: Glucose, Whole Blood 204 mg/dL (60-115)
[2024-01-05 11:46] LABS: Anion Gap 19 (12-20); Blood Urea Nitrogen 4 mg/dL (9-16); Carbon Dioxide 23 mmol/L (22-29); Chloride 90 mmol/L (96-108); Creatinine Clr Calc Pharmacy 152.7; Estimated Glomerular Filt Rate > 60; Glucose Random 195 mg/dL (60-115); Lipase 99 U/L (8-78); Potassium 3.8 mmol/L (3.3-5.1); Sodium 128 mmol/L (135-145)
--- NOTE | 2024-01-05 13:08 | PC.NURSE ---
D/cd CIWA per MD
[2024-01-05 16:11] LABS: Glucose, Whole Blood 137 mg/dL (60-115)
[2024-01-05] MEDS: 0.9 % Sodium Chloride Flush 3 ML SYRINGE IVFLUSH ×2 (16:32→21:53)
[2024-01-05 20:01] LABS: Glucose, Whole Blood 211 mg/dL (60-115)
[2024-01-06] MEDS: oxyCODONE HCl Immed Release 5 MG TABLET PO (00:28)
[2024-01-06] MEDS: HYDROmorphone HCl 1 MG/ML SYRINGE IVPUSH ×2 (02:07→05:49)
[2024-01-06 03:01] VITALS: BP 156/82; PULSE 67; RESP 18; TEMP 36; O2SAT 96
[2024-01-06] MEDS: Lactated Ringers 1,000 ML 150 ML IVCONT (05:23)
[2024-01-06] MEDS: Omeprazole 20 MG CAPSULE.DR PO (05:48)
[2024-01-06 06:19] VITALS: RESP 18
[2024-01-06 07:22] VITALS: BP 139/96; PULSE 98; RESP 16; TEMP 36.9; O2SAT 99
[2024-01-06 07:25] LABS: Glucose, Whole Blood 147 mg/dL (60-115)
--- NOTE | 2024-01-06 08:30 | PC.NURSE ---
Pt stated he had to leave. Dressed and waiting for IV to be removed. Pt A&Ox3. Dr. Garcia notified. In to risk reduction counselor pt. IV removed. Instructed pt to return to ED with worsening symptoms. Signed AMA and directed to exit at main entrance.
--- NOTE | 2024-01-06 12:43 | P.DS_ITS ---
DS: Providers Provider Date of Service: 01/06/24 Date of admission: 01/04/24 14:11 Primary care physician: Pino Zaidi NP DS: Diagnosis Discharge Diagnosis (1) Acute on chronic pancreatitis: Status: Acute DS: Summary Hospital Course Hospital Course: The patient was admitted for the management of acute pancreatitis and impending alcohol withdrawal. While his pancreatitis has fully resolved, he continued to experience some pain. After discussing his condition, he elected to leave against medical advice (AMA) to attend to family matters. The risks of leaving AMA, including the potential for worsening pancreatitis, increased pain, and even , were fully explained, and he demonstrated an understanding of these risks. He was advised to reduce or discontinue alcohol consumption and to gradually advance his diet, as his pancreatitis is still present. He was also instructed to return to the emergency room or call 911 if his symptoms worsen and to follow up with his primary care physician. The patient was awake, alert, and oriented to self, place, and time. RN Grace Govea was present during the discussion. Final diagnoses: Acute pancreatitis Alcohol use disorder, at risk for withdrawal Time Attestation Discharge Coordination Time (in mins): 15 Quality: Safe Use of Opioids Does Pt have an Active Cancer Diagnosis on the Problem List?: No Quality: Stroke Does the patient have a stroke diagnosis?: No Physical Exam Vital Signs: Vital Signs: Last Vital Signs Temp 98.5 F 01/06/24 07:22 Pulse 98 01/06/24 07:22 Resp 16 01/06/24 07:22 BP 139/96 H 01/06/24 07:22 Pulse Ox 99 01/06/24 07:22 O2 Del Method Room Air 01/06/24 07:22 BMI result Body Mass Index 27.6 DS: Data Data Completed and Pending Labs on day of discharge: Laboratory Results - last 24 hr 01/05/24 01/05/24 01/06/24 16:07 19:56 07:17 POC Glucose 137 H 211 H 147 H Discharge Plan Discharge Anticipated Discharge Date/Time: 01/06/24 12:39 Patient Disposition: Left Against Medical Advice Discharge Diagnosis: Acute pancreatitis, Referrals: Pino Zaidi NP [Primary Care Provider] - 1 Week Discharge Medications: Continued amlodipine 5 mg tablet 5 mg PO DAILY omeprazole 20 mg capsule,delayed release(DR/EC) 20 mg PO DAILY@0630 insulin aspart U-100 [Novolog FlexPen U-100 Insulin] 100 unit/mL (3 mL) insulin pen 2 - 10 unit subcut TID insulin glargine [Lantus Solostar U-100 Insulin] 100 unit/mL (3 mL) insulin pen 3 unit subcut BEDTIME Discharge Orders: Discharge Order (Routine); Ordered 01/06/24 Ordered By: Umberto Garcia Diet: Advance to usual diet Activity on Discharge: As tolerated Print Language: Citizen Of [place] Care Plan Goals: recovery from pancreaitis and abstinence Health Concerns: Pancreatitis Alcohol dependency Plan of Treatment: Advised to stop drinking And to advance diet slowly He left AMA, risk risks of leaving AMA were fully explained to the patient who was fully awake alert and oriented and her full understanding conversation was witnessed by the RN. Assessment: see Discharge Date/Time: 01/06/24 07:59
== END 2024-01-06 07:59 | disposition left against medical advice (07) | DRG 440 ==
LOC: HO.ED 12:38 → HO.EDOVER 14:26 → HO.S3 16:03
PROVIDERS: Physician Assistant Medical; Admitting Provider Internal Medicine; Emergency Provider Emergency Medicine; PCP Nurse Practitioner Family; Visit Provider Internal Medicine
DX: K85.90 Acute pancreatitis without necrosis or infection, unspecified (principal); E11.9 Type 2 diabetes mellitus without complications; F17.210 Nicotine dependence, cigarettes, uncomplicated; F10.10 Alcohol abuse, uncomplicated; Z71.6 Tobacco abuse counseling; Z79.4 Long term (current) use of insulin; Z79.899 Other long term (current) drug therapy
CPT/HCPCS: 36415; 74177; 80048; 80053; 82150; 82248; 82947; 83605; 83690; 85025; 99285; J1171; J1650; J2060; J2270; J2405; J2470; J2560; J7120; Q9967

== ENCOUNTER → 2024-01-04 14:11 | Outpatient (BNV) | payer OTHER, SELFPAY | PROVIDERS: Admitting Provider Internal Medicine; Emergency Provider Emergency Medicine; PCP Nurse Practitioner Family; Visit Provider Internal Medicine | DX: K85.90 Acute pancreatitis without necrosis or infection, unspecified (principal); K86.1 Other chronic pancreatitis; Z53.29 Procedure and treatment not carried out because of patient's decision for other reasons | CPT/HCPCS: 99223; 99232; 99238 ==

== ENCOUNTER 2024-08-06 11:41 | Inpatient (IN) | payer OTHER, SELFPAY ==
--- NOTE | ~2024-08-06 | CT_ITS ---
CLINICAL HISTORY: abd pain CT abdomen and pelvis with IV contrast. COMPARISON: None provided. FINDINGS: Partially visualized lung bases are unremarkable. No focal hepatic lesion. Hepatic steatosis. Normal gallbladder. Normal spleen. Cystic lesion within the pancreatic tail measuring 1.2 cm. There is mild edema along the pancreatic head. No choledocholithiasis identified. Normal adrenal glands. Symmetric renal enhancement. No hydronephrosis. Appendectomy. No bowel obstruction. No mesenteric or retroperitoneal lymphadenopathy. Normal abdominal aorta. Retroaortic left renal vein. Diffuse thickening of the mucosa of the urinary bladder. Prostate calcifications present. No inguinal lymphadenopathy. Mild lumbar spondylosis. No acute fracture or suspicious bone lesion. IMPRESSION: 1. Likely acute pancreatitis. Mild edema along the pancreatic head. No choledocholithiasis, pancreatic head mass or pseudocyst identified. 2. Cystic lesion within the pancreatic tail measuring 1.2 cm. Recommend comparison with prior imaging if available. If none available, recommen follow-up pancreatic protocol CT or MR in 12 months. 3. Mild diffuse thickening of the mucosa of the urinary bladder likely secondary to degree of contraction. Urinary bladder wall thickening can also be seen with cystitis or outlet obstruction. Recommend correlation clinically. 4. Hepatic steatosis. This document has been electronically signed by: Zane Zhou MD on 08/06/2024 15:22:30
[2024-08-06 12:11] VITALS: BP 143/96; PULSE 83; RESP 16; TEMP 36.9; O2SAT 99; BMI 28.2
--- NOTE | 2024-08-06 12:13 | ECG_ITS ---
Test Reason : CP Blood Pressure : */* mmHG Vent. Rate : 81 BPM Atrial Rate : 81 BPM P-R Int : 148 ms QRS Dur : 94 ms QT Int : 358 ms P-R-T Axes : 41 42 22 degrees QTcB Int : 415 ms Normal sinus rhythm with sinus arrhythmia Normal ECG No previous ECGs available Referred By: Ulices Muir Electronically Signed By: VICENTA SHAFFER
--- NOTE | 2024-08-06 12:14 | ED_ITS ---
HPI - General Adult General Chief complaint: Abdominal Pain Stated complaint: pancreatitis Time Seen by Provider: 08/06/24 12:53 Related Data Home Medications ?Medication ?Instructions ?Recorded ?Confirmed amlodipine 5 mg tablet 5 mg PO DAILY 01/04/2408/06 insulin aspart U-100 100 unit/mL 2 - 10 unit subcut TI D 01/04/24 08/06/24 (3 mL) subcutaneous pen (Novolog FlexPen U-100 Insulin aspart) insulin glargine 100 unit/mL (3 10 - 12 unit subcut BE DTIME 01/04/24 08/06/24 mL) subcutaneous pen (Lantus Solostar U-100 Insulin) famotidine 20 mg tablet 40 mg PO DAILY 08/06/2407/17 Allergies Allergy/AdvReac Type Severity Reaction Status Date / Time No Known Allergies Allergy Verified 08/06/24 12:13 [facility] Social History Social History Household Members: Spouse Housing: House Alcohol intake: current Alcohol intake frequency: 3 or more drinks per day Comment: previously declined alarm and/or camera, previous shift per md d/santiago brooks Patient Tobacco Use Status: Current everyday Tobacco user Tobacco use type: Cigarette Smoked in Last 30 Days: Yes e-Cigarette/Vaping Use: Former Use Second Hand Smoke Exposure: No Use of substances other than those prescribed or required for medical reasons: No Substance Use Type: Marijuana Advance Directives: No Advance Directives Information Provided: Yes Do you have a plan to hurt others: No Plan service: No Physical Exam ED Vital Signs: Vital Signs - 24 hr 08/06/24 12:11 08/06/24 14:00 08/06/24 16:00 Temperature 98.5 F 98.5 F 97.5 F Pulse Rate 83 78 70 Respiratory Rate 16 16 16 Blood Pressure 143/96 H 132/84 120/60 Pulse Oximetry 99 100 95 Oxygen Delivery Method Room Air Room Air Room Air BMI result Body Mass Index 28.2 Course Course Course Narrative: RME: 33-year-old male pancreatitis and diabetes presents to ED for upper abdominal pain after drinking alcohol 02:00 this morning. Patient states having similar pancreatic flare pain. Patient denies any lower abdominal pain chest pain or shortness of breath. Patient has history of diabetes we will do EKG labs ordered. Medications Administered Generic Name Dose Route Start Last Admin Trade Name Freq PRN Reason Stop Dose Admin Hydromorphone HCl 1 mg 08/06/24 19:13 08/06/24 19:35 Hydromorphone Hcl 1 Mg/Ml Syringe IVPUSH 1 mg Q3H PRN Administration sev Protocol Lactated Ringer's 1,000 mls @ 125 mls/hr 08/06/24 17:30 08/06/24 17:52 Lr IVCONT 125 mls/hr .Q8H ONOFRE Administration Acetaminophen 1,000 mg in 100 mls @ 400 mls/hr 08/06/24 19:30 08/06/24 20:32 Ofirmev IV 08/07/24 19:29 Infused Q6H ONOFRE Infusion Thiamine HCl 100 mg/ Sodium 101 mls @ 202 mls/hr 08/06/24 19:30 08/06/24 21:30 Chloride IV Infused DAILY ONOFRE Infusion Insulin Human Lispro 0 unit 08/06/24 21:00 08/06/24 20:30 Insulin Lispro 100 Unit/Ml 3 Ml Vial SUBCUT Not Given QIDACHS [facility] Protocol Discontinued Medications Generic Name Dose Route Start Last Admin Trade Name Sherwniq PRN Reason Stop Dose Admin Al Hydroxide/Mg Hydroxide 30 ml 08/06/24 13:44 08/06/24 14:17 Magnesium Hydrox/Alum Hydrox 30 Ml Oral.Susp PO 08/06/24 13:45 30 ml ONCE ONE Administration Diazepam 10 mg 08/06/24 15:47 08/06/24 16:32 Diazepam 10 Mg/2 Ml Cartridge IVPUSH 08/06/24 15:48 10 mg STAT STA Administration Diazepam 10 mg 08/06/24 21:47 08/06/24 22:32 Diazepam 10 Mg/2 Ml Cartridge IVPUSH 08/06/24 21:48 10 mg STAT STA Administration Hydromorphone HCl 1 mg 08/06/24 13:08 08/06/24 13:20 Hydromorphone Hcl 1 Mg/Ml Syringe IVPUSH 08/06/24 13:09 1 mg ONCE ONE Administration Protocol Hydromorphone HCl 1 mg 08/06/24 14:20 08/06/24 14:36 Hydromorphone Hcl 1 Mg/Ml Syringe IVPUSH 08/06/24 14:21 1 mg ONCE ONE Administration Protocol Hydromorphone HCl 0.5 mg 08/06/24 15:24 08/06/24 15:30 Hydromorphone Hcl 0.5 Mg/0.5 Ml Syringe IVPUSH 08/06/24 15:25 0.5 mg ONCE ONE Administration Protocol Hydromorphone HCl 0.5 mg 08/06/24 17:19 08/06/24 18:42 Hydromorphone Hcl 1 Mg/Ml Syringe IVPUSH 0.5 mg Q4H PRN Administration Pain, Severe (Pain Scale 7-10) Protocol Ondansetron HCl 4 mg 08/06/24 13:08 08/06/24 13:20 Ondansetron Hcl 4 Mg/2 Ml Vial IVPUSH 08/06/24 13:09 4 mg ONCE ONE Administration Phenobarbital Sodium 390 mg 08/06/24 21:15 08/06/24 21:25 Phenobarbital Sodium 130 Mg/Ml Im Once IM 08/06/24 21:16 390 mg ONCE ONE Administration Medical Decision Making Medical Decision Making [facility] Narrative: Patient 33 years old presents today with having abdominal pain. Worse over the epigastric area. Given multiple doses of pain medicine. Patient's CT scan positive for pancreatitis. Has a history of the same. Patient has no pseudocyst. Given additional medication for withdrawal. Had a discussion with patient he wants to be admitted for further pain control. Differential Diagnosis Pancreatitis Admission/Observation Consideration of admission/observation: Escalation of care including admission/observation considered Consult Healthcare Provider Management of the patient was discussed with: Hospitalist Lab Data [facility] Lab Attestation statement: I reviewed the patient's lab results. 08/06/24 13:15 08/06/24 13:15 Labs: Lab Results 08/06/24 08/06/24 Range/Units 13:15 13:49 WBC 5.2 (4.8-10.8) X10*3/uL RBC 4.80 (4.60-5.80) X10*6/uL Hgb 15.1 (14.0-18.0) g/dl Hct 43.8 (42.0-52.0) % MCV 91.3 (80.0-98.0) fL MCH 31.5 (27.0-33.0) pg MCHC 34.5 (31.0-36.0) g/dl RDW 14.0 (11.0-16.0) % Plt Count 187 (160-400) X10*3/uL MPV 9.9 (9.4-12.4) fL Immature Gran % (Auto) 0.2 (0.0-0.4) % Neut % (Auto) 51.4 (45-73) % Lymph % (Auto) 33.8 (20-40) % [place] % (Auto) 12.2 H (2-11) % Eos % (Auto) 1.2 (0-4) % Baso % (Auto) 1.2 (0-2) % Lymph # (Auto) 1.7 (1.2-4.9) X10*3/uL [place] # (Auto) 0.6 (0.1-1.2) X10*3/uL Eos # (Auto) 0.1 (0.0-0.4) X10*3/uL Baso # (Auto) 0.1 (0.0-0.2) X10*3/uL Abs Immat Gran (auto) 0.01 (0.00-0.03) X10*3/uL Absolute Neuts (auto) 2.7 (2.0-8.3) x10*3/uL Absolute Nucleated RBC 0.000 (0.0-0.012) X10*3/uL Nucleated RBC % (auto) 0.0 (0.0-0.2) /100WBC Sodium 139 (135-145) mmol/L Potassium 4.3 (3.3-5.1) mmol/L Chloride 100 (96-108) mmol/L Carbon Dioxide 26 (22-29) mmol/L Anion Gap 17 (12-20) BUN 14 (9-16) mg/dL Creatinine 0.73 (0.5-1.4) mg/dL Estim Creat Clear Calc 145.8 Estimated GFR > 60 Random Glucose 197 H (60-115) mg/dL Calcium 10.3 H D (8.4-10.2) mg/dL Magnesium 1.7 (1.6-2.6) mg/dL Total Bilirubin 0.5 (0.0-1.0) mg/dL AST 249 H (5-37) U/L ALT 240 H (0-40) U/L Alkaline Phosphatase 75 (39-117) U/L Troponin I High Sens < 2.7 (<3.5-35.0) ng/L Total Protein 8.3 H (6.5-8.0) g/dL Albumin 5.1 H (3.5-5.0) g/dL Lipase 60 (8-78) U/L Urine Color Yellow Urine Appearance Clear Urine pH 5.5 (5.0-9.0) Ur Specific [place] 1.025 (1.005-1.025) Urine Protein 30 (1+) H (Neg-Trace) mg/dL Urine Glucose (UA) Negative (Negative) mg/dL Urine Ketones 15 (Negative) mg/dL Urine Blood Negative (Negative) Urine Nitrite Negative (Negative) Ur Leukocyte Esterase Negative (Negative) Urine RBC 0-2 (0-2) /HPF Urine WBC 0-5 (0-5) /HPF Ur Squamous Epith Cells 0-2 (0-2) /HPF Urine Bacteria None Seen (None Seen) Hyaline Casts 0-2 (0-2) /LPF Urine Opiates Screen Not Detected (Not Detect) Ur Buprenorphine Scrn Not Detected (Not Detect) ng/mL Ur Oxycodone Screen Not Detected (Not Detect) ng/mL Urine Methadone Screen Not Detected (Not Detect) ng/mL Urine Fentanyl Screen Not Detected (Not Detect) Ur Barbiturates Screen Not Detected (Not Detect) Ur Phencyclidine Scrn Not Detected (Not Detect) Ur Amphetamines Screen Not Detected (Not Detect) U Benzodiazepines Scrn Not Detected (Not Detect) Urine Cocaine Screen Not Detected (Not Detect) U Marijuana (THC) Screen Not Detected (Not Detect) Ethyl Alcohol 12 mg/dL Independent Interpretation I performed an independent interpretation of an: CT Scan ( no obstruction positive pancreatitis) Radiology Impression Discussion of test interpretation with radiology: I have reviewed the radiologist's reading. External Record Review External record reviewed: Inpatient record Prescription Management I considered prescription management with: Pain Medication Social Determinants Patient?s care significantly limited by Social Determinants of Health including: Alcoholism and drug addiction in family and Problems related to primary support group Critical Care Time Critical Care Time Critical Care Time: Yes Total Critical Care Time: 40 Attestation: I have personally provided 40 minutes of critical care time exclusive of time spent on separately billable procedures. Time includes review of lab data, radiology results, discussion with consultants, and monitoring for potential decompensation. Interventions were performed as documented above Discharge Plan Discharge Clinical Impression: Acute on chronic pancreatitis Patient Disposition: Admitted As Inpatient
--- NOTE | 2024-08-06 12:25 | PC.NURSE ---
Pt was about to eat a sandwich from [employer] and stopped when this RN advised him to hold off.
--- NOTE | 2024-08-06 13:11 | ED.ABDPAIN ---
HPI - Abdominal Pain General Chief Complaint: Abdominal Pain Stated Complaint: pancreatitis Time Seen by Provider: 08/06/24 12:53 History of Present Illness HPI narrative: Patient is a 33-year-old male with a long history of diabetes long history of pancreatitis secondary to alcohol abuse. Presents today with having abdominal pain mainly over the epigastric area after drinking heavily all weekend. Stop drinking at 03:00. Complaining of pain over the epigastric area associated with nausea. Generalized malaise. Related Data Home Medications ?Medication ?Instructions ?Recorded ?Confirmed amlodipine 5 mg tablet 5 mg PO DAILY 01/04/24 01/04/24 insulin aspart U-100 100 unit/mL 2 - 10 unit subcut TID 01/04/24 01/04/24 (3 mL) subcutaneous pen (Novolog FlexPen U-100 Insulin aspart) insulin glargine 100 unit/mL (3 3 unit subcut BEDTIME 01/04/24 01/04/24 mL) subcutaneous pen (Lantus Solostar U-100 Insulin) omeprazole 20 mg capsule,delayed 20 mg PO DAILY@0630 01/04/24 01/04/24 release Allergies Allergy/AdvReac Type Severity Reaction Status Date / Time No Known Allergies Allergy Verified 08/06/24 12:13 Review of Systems Review of Systems Positive epigastric pain PMFSH Past Medical History Attestation statement: The following information was validated with the patient. Social History Social History Household Members: Spouse Housing: House Alcohol intake: current Alcohol intake frequency: 3 or more drinks per day Comment: previously declined alarm and/or camera, previous shift per d/c todd Patient Tobacco Use Status: Current everyday Tobacco user Tobacco use type: Cigarette Smoked in Last 30 Days: Yes e-Cigarette/Vaping Use: Former Use Second Hand Smoke Exposure: No Use of substances other than those prescribed or required for medical reasons: No Substance Use Type: Marijuana Do you have a plan to hurt others: No Plan service: No Physical Exam ED Vital Signs: Vital Signs - 24 hr 08/06/24 12:11 Temperature 98.5 F Pulse Rate 83 Respiratory Rate 16 Blood Pressure 143/96 H Pulse Oximetry 99 Oxygen Delivery Method Room Air BMI result Body Mass Index 28.2 Appearance: Alert. Oriented X3. No acute distress. Eyes: Pupils equal, round and reactive to light. ENT: Pharynx normal. Neck: Normal inspection. Neck supple. No lymph nodes noted. No crepitus CVS: Normal heart rate and rhythm. Pulses normal. Normal S1 and S2 Respiratory: No respiratory distress. Breath sounds normal. No Wheezing. No rales Abdomen: Soft and nontender. No rigidity. No distention. good BS x4 Skin: Skin warm and dry. Normal skin color. Normal skin turgor. Extremities: No lower extremity edema. Neurovascular intact to all extremities. No Lacerations. No Rash Neuro: Oriented X 3. No motor deficit. No sensory deficit. Moving all extermities. No slurred speech Discharge Plan Discharge Prescriptions: No Action amlodipine 5 mg tablet 5 mg PO DAILY omeprazole 20 mg capsule,delayed release(DR/EC) 20 mg PO DAILY@0630 insulin aspart U-100 [Novolog FlexPen U-100 Insulin] 100 unit/mL (3 mL) insulin pen 2 - 10 unit subcut TID insulin glargine [Lantus Solostar U-100 Insulin] 100 unit/mL (3 mL) insulin pen 3 unit subcut BEDTIME Print Language: Vietnamese
[2024-08-06] MEDS: ondansetron HCL 4 MG/2 ML VIAL IVPUSH (13:20)
[2024-08-06] MEDS: HYDROmorphone HCl 1 MG/ML SYRINGE IVPUSH ×3 (13:20→19:35)
[2024-08-06 13:23] LABS: MANUAL DIFF FLAG NO
--- NOTE | 2024-08-06 13:25 | PC.NURSE ---
33-year-old male with history of insulin-dependent diabetes, alcohol use disorder, and pancreatitis presented with abdominal pain since 3 am with last drink at 3am. Alert and oriented. Lungs clear bilat. Respirations even and non-labored. Abdomen sl firm with positive bowel sounds. c/o emily-umbilical abdominal pain, stating I believe I have pancreatitis. Positive pedal pulses with no edema noted. at the bedside.
[2024-08-06 13:38] LABS: Alanine Aminotransferase 240 U/L (0-40); Albumin Level 5.1 g/dL (3.5-5.0); Alkaline Phosphatase 75 U/L (39-117); Anion Gap 17 (12-20); Aspartate Amino Transferase 249 U/L (5-37); Bilirubin Total 0.5 mg/dL (0.0-1.0); Blood Urea Nitrogen 14 mg/dL (9-16); Calcium 10.3 mg/dL (8.4-10.2); Carbon Dioxide 26 mmol/L (22-29); Chloride 100 mmol/L (96-108); Creatinine Clr Calc Pharmacy 145.8; Estimated Glomerular Filt Rate > 60; Ethanol 12 mg/dL; Glucose Random 197 mg/dL (60-115); Lipase 60 U/L (8-78); Magnesium 1.7 mg/dL (1.6-2.6); Potassium 4.3 mmol/L (3.3-5.1); Sodium 139 mmol/L (135-145); Total Protein 8.3 g/dL (6.5-8.0)
[2024-08-06 13:42] LABS: Basophils Absolute Auto 0.1 X10*3/uL (0.0-0.2); Basophils Percent Auto 1.2 % (0-2); Eosinophils Absolute Auto 0.1 X10*3/uL (0.0-0.4); Eosinophils Percent Auto 1.2 % (0-4); Hematocrit 43.8 % (42.0-52.0); Hemoglobin 15.1 g/dl (14.0-18.0); Imm Gran Abs Auto 0.01 X10*3/uL (0.00-0.03); Imm Gran Pct Auto 0.2 % (0.0-0.4); Lymphocytes Absolute Auto 1.7 X10*3/uL (1.2-4.9); Lymphocytes Percent Auto 33.8 % (20-40); Mean Corpuscular HGB Conc 34.5 g/dl (31.0-36.0); Mean Corpuscular Hemoglobin 31.5 pg (27.0-33.0); Mean Corpuscular Volume 91.3 fL (80.0-98.0); Mean Platelet Volume 9.9 fL (9.4-12.4); Monocytes Absolute Auto 0.6 X10*3/uL (0.1-1.2); Monocytes Percent Auto 12.2 % (2-11); Neutrophils Absolute Auto 2.7 x10*3/uL (2.0-8.3); Neutrophils Percent Auto 51.4 % (45-73); Platelet Count 187 X10*3/uL (160-400); White Blood Count 5.2 X10*3/uL (4.8-10.8)
[2024-08-06 13:51] LABS: Troponin-I High Sensitivity < 2.7 ng/L (<3.5-35.0)
[2024-08-06 13:59] LABS: Appearance Urine Clear; Color Urine Yellow; Glucose Urine UA Negative (Negative); Leukocyte Esterase Urine Negative (Negative); Nitrite Urine Negative (Negative); PH 5.5 (5.0-9.0); Specific Gravity - Urine 1.025 (1.005-1.025); UMIC TRIGGER UACC YES; Urine Blood Negative (Negative); Urine Ketones 15 mg/dL (Negative); Urine Protein 30 (1+) mg/dL (Neg-Trace)
[2024-08-06 14:00] VITALS: BP 132/84; PULSE 78; RESP 16; TEMP 36.9; O2SAT 100
[2024-08-06 14:03] LABS: Bacteria Urine None Seen (None Seen); Hyaline Casts Urine 0-2 /LPF (0-2); RBC Urine 0-2 /HPF (0-2); Squamous Epithelial Cell Urine 0-2 /HPF (0-2); WBC Urine 0-5 /HPF (0-5)
[2024-08-06 14:07] LABS: Amphetamine Screen Urine Not Detected (Not Detect); Barbiturates, Urine Not Detected (Not Detect); Benzodiazepines Screen Urine Not Detected (Not Detect); Buprenorphine Scr Not Detected (Not Detect); Cannabinoid Screen Urine Not Detected (Not Detect); Cocaine Screen Urine Not Detected (Not Detect); Fentanyl, urine Not Detected (Not Detect); Methadone Screen, Urine Not Detected (Not Detect); Opiate Screen Urine Not Detected (Not Detect); Oxycodone Screen Urine Not Detected (Not Detect); Phencyclidine Screen Urine Not Detected (Not Detect)
[2024-08-06] MEDS: Magnesium Hydrox/Alum Hydrox 30 ML ORAL.SUSP PO (14:17)
[2024-08-06] MEDS: HYDROmorphone HCl 0.5 MG/0.5 ML SYRINGE IVPUSH (15:30)
[2024-08-06 16:00] VITALS: BP 120/60; PULSE 70; RESP 16; TEMP 36.4; O2SAT 95
[2024-08-06] MEDS: diazePAM 10 MG/2 ML CARTRIDGE IVPUSH ×2 (16:32→22:32)
--- NOTE | 2024-08-06 17:10 | PM.IMHP ---
History of Present Illness Date of Service: 08/06/24 Chief Complaint: abdominal pain 33 year old male with history HTN, DM, alcohol related pancreatitis, alcohol use disorder who has been drinking heavily the entire weekend, last drank this mornign and presents with suden onset of severe epigastric pain, no radiation, no n/v, pain is similar to that of prior episodes of pancreatitis. Lipase level is normal yet A CT demonstrates evicdence of acute pancreatitis. Treated with IV dilaudid with persistent pain and is being admitted for further management Review of Systems Review of Systems: Gen: no fever Resp: no sob, no cough CV: no chest, no SAGE, no leg edema GI: No n/v, no abd pain Neuro: No confusion Yes all other systems are reviewed and are negative PMFSH Social History Household Members: Spouse Housing: House Do you presently have visiting nurse or other home services: No Alcohol intake: current Alcohol intake frequency: 3 or more drinks per day Comment: previously declined alarm and/or camera, previous shift per md d/c todd Patient Tobacco Use Status: Current everyday Tobacco user Tobacco use type: Cigarette Smoked in Last 30 Days: Yes e-Cigarette/Vaping Use: Former Use Patient Interested in Nicotine Replacement: No Patient Given Instructions on How to Stop Smoking: No Second Hand Smoke Exposure: No Use of substances other than those prescribed or required for medical reasons: No Substance Use Type: Marijuana Have you been hit, kicked, punched, or otherwise hurt by someone within the past year? If so, by whom?: No Do you feel safe in your current relationship?: No Is there a partner from a previous relationship who is making you feel unsafe now?: No Are you made to feel afraid or neglected: No Advance Directives: No Advance Directives Information Provided: Yes Do you have a plan to hurt others: No Plan Recently lost weight without trying: No Nutrition Risks: No Nutritional Risk Poor oral hygiene: No service: No Meds Allergies Allergy/AdvReac Type Severity Reaction Status Date / Time No Known Allergies Allergy Verified 08/06/24 12:13 Active Medications: Current Medications Hydroxyzine HCl (Hydroxyzine Hcl 25 Mg Tablet) 25 mg PO Q6H PRN PRN Reason: Anxiety Home Medications ?Medication ?Instructions ?Recorded ?Confirmed ?Last Taken ?Type amlodipine 5 mg tablet 5 mg PO DAILY 01/04/24 08/06/24 01/03/24 History insulin aspart U-100 100 unit/mL 2 - 10 unit subcut TID 01/04/24 08/06/24 01/03/24 History (3 mL) subcutaneous pen (Novolog FlexPen U-100 Insulin aspart) insulin glargine 100 unit/mL (3 10 - 12 unit subcut BEDTIME 01/04/24 08/06/24 01/03/24 History mL) subcutaneous pen (Lantus Solostar U-100 Insulin) famotidine 20 mg tablet 40 mg PO DAILY 08/06/24 08/06/24 Unknown History Physical Exam Vital Signs and Narrative: Vital Signs: Last Vital Signs Temp 97.5 F 08/06/24 16:00 Pulse 70 08/06/24 16:00 Resp 16 08/06/24 16:00 BP 120/60 08/06/24 16:00 Pulse Ox 95 08/06/24 16:00 O2 Del Method Room Air 08/06/24 16:00 BMI result Body Mass Index 28.2 Const: Other: General: AO X 3, no acute distress Resp: CTA bilateral CVS: S1,S2,RRR GI: +BS,epigastric tenderness, no distention Skin: No rash Neuro: motor grossly intact Psych: appropriate affect Results Labs 08/06/24 13:15 08/06/24 13:15 Labs: Laboratory Results - last 24 hr 08/06/24 08/06/24 13:15 13:49 MCV 91.3 MCH 31.5 MCHC 34.5 RDW 14.0 Plt Count 187 MPV 9.9 Immature Gran % (Auto) 0.2 Neut % (Auto) 51.4 Lymph % (Auto) 33.8 [place] % (Auto) 12.2 H Eos % (Auto) 1.2 Baso % (Auto) 1.2 Lymph # (Auto) 1.7 [place] # (Auto) 0.6 Eos # (Auto) 0.1 Baso # (Auto) 0.1 Abs Immat Gran (auto) 0.01 Absolute Neuts (auto) 2.7 Absolute Nucleated RBC 0.000 Nucleated RBC % (auto) 0.0 Anion Gap 17 Estim Creat Clear Calc 145.8 Estimated GFR > 60 Random Glucose 197 H Calcium 10.3 H D Magnesium 1.7 Total Bilirubin 0.5 AST 249 H ALT 240 H Alkaline Phosphatase 75 Troponin I High Sens < 2.7 Total Protein 8.3 H Albumin 5.1 H Lipase 60 Urine Color Yellow Urine Appearance Clear Urine pH 5.5 Ur Specific [place] 1.025 Urine Protein 30 (1+) H Urine Glucose (UA) Negative Urine Ketones 15 Urine Blood Negative Urine Nitrite Negative Ur Leukocyte Esterase Negative Urine RBC 0-2 Urine WBC 0-5 Ur Squamous Epith Cells 0-2 Urine Bacteria None Seen Hyaline Casts 0-2 Urine Opiates Screen Not Detected Ur Buprenorphine Scrn Not Detected Ur Oxycodone Screen Not Detected Urine Methadone Screen Not Detected Urine Fentanyl Screen Not Detected Ur Barbiturates Screen Not Detected Ur Phencyclidine Scrn Not Detected Ur Amphetamines Screen Not Detected U Benzodiazepines Scrn Not Detected Urine Cocaine Screen Not Detected U Marijuana (THC) Screen Not Detected Ethyl Alcohol 12 Assessment and Plan (1) Acute on chronic pancreatitis: Status: Acute Plan 33-year-old male with history of insulin-dependent diabetes, alcohol use disorder presenting with abdominal pain and finding on the CT scan consistent with acute pancreatitis, high risk for alcohol withdrawal. Acute pancreatitis npo ivf dilaudid for pain Alohol use disorder, high risk for withdrawal start phenobarbital protol folic acid and thiamine replacement insulin dependent diabetes Sliding scale insulin while NPO, hold lantus HTN Norvasc dvt prophylaxis: low risk, early ambulation full code Quality Stroke Does the patient have a stroke diagnosis?: No VTE Prior VTE?: No VTE Risk Level:: Medical - low VTE Device Contraindication: Treatment Not Indicated VTE Drug Contraindication: Treatment Not Indicated
--- NOTE | 2024-08-06 17:51 | PHA.MEDREC ---
Addendum entered by Wayne Alamo [facility] 08/06/24 18:16: MED REC CHECKED BY [facility] Original Note: Pharmacy Consult ? Medication Reconciliation Pharmacy has completed the medication reconciliation. Spoke with patient to confirm medications. He takes 2 tabs of famotidine in the morning. He takes 10-12 units of Lantus at bedtime and uses a sliding scale of novolog with meals (between 2-10 units). He never started metformin. It was prescribed by his primary however his marble coper advised him to not take it. He did not take any medications today.
[2024-08-06] MEDS: Lactated Ringers 1,000 ML 125 ML IVCONT (17:52)
[2024-08-06 18:00] VITALS: BP 133/88; PULSE 64; RESP 16; O2SAT 97
[2024-08-06] MEDS: HYDROmorphone HCl 1 MG/ML SYRINGE 0.5 MG IVPUSH (18:42)
--- NOTE | 2024-08-06 19:23 | PC.NURSE ---
this rn assumed care of pt, pt reporting 10/10 pain at this time, provider aware, pending orders.
[2024-08-06] MEDS: Acetaminophen 1,000 MG/100 ML PIGGYBACK 400 MG IV (19:34)
[2024-08-06] MEDS: Thiamine HCL 100 MG in 0.9 % Sodium Chloride 100 ML 202 MG IV (19:34)
[2024-08-06 20:38] LABS: Glucose, Whole Blood 220 mg/dL (60-115)
[2024-08-06] MEDS: PHENobarbitaL sodium 130 MG/ML IM ONCE 390 MG IM (21:25)
--- NOTE | 2024-08-06 22:46 | PC.NURSE ---
IV noted to be infiltrated on R AC. IV removed. Gaining new access.
[2024-08-06 23:05] VITALS: BP 141/67; PULSE 88; RESP 16; TEMP 37; O2SAT 100
[2024-08-07] VITALS (12 sets, daily range): BP systolic 135–147; BP diastolic 82–95; PULSE 60–88; RESP 16–18; TEMP 36–36.7; O2SAT 95–99; BMI 28.0
[2024-08-07] MEDS: HYDROmorphone HCl 1 MG/ML SYRINGE IVPUSH ×7 (00:32→22:00)
[2024-08-07] MEDS: PHENobarbitaL sodium 130 MG/ML VIAL IM Q3Hx2 300 MG IM ×2 (00:48→03:37)
[2024-08-07] MEDS: Lactated Ringers 1,000 ML 125 ML IVCONT ×3 (02:32→17:24)
[2024-08-07] MEDS: Acetaminophen 1,000 MG/100 ML PIGGYBACK 400 MG IV ×3 (02:32→14:39)
[2024-08-07] MEDS: 0.9 % Sodium Chloride Flush 3 ML SYRINGE IVFLUSH ×2 (02:34→09:13)
[2024-08-07] MEDS: HYDROmorphone HCl 0.5 MG/0.5 ML SYRINGE IVPUSH (05:26)
[2024-08-07 07:36] LABS: Glucose, Whole Blood 216 mg/dL (60-115)
[2024-08-07] MEDS: Insulin Lispro 100 UNIT/ML 3 ML VIAL SUBCUT ×2 (08:34→11:45)
[2024-08-07] MEDS: amLODIPine Besylate 5 MG TABLET PO (08:39)
[2024-08-07] MEDS: Famotidine 20 MG TABLET 40 MG PO (08:39)
--- NOTE | 2024-08-07 09:00 | HO.PM.IMPN ---
Subjective Subjective Date of Service: 08/07/24 Interval History: f/u on acute pancreatitis c/o persistent pain, severe Physical Exam Vital Signs: Vital Signs: Last Vital Signs Temp 96.8 F 08/07/24 07:31 Pulse 63 08/07/24 07:31 Resp 18 08/07/24 07:31 BP 140/82 H 08/07/24 08:39 Pulse Ox 98 08/07/24 07:31 O2 Del Method Room Air 08/07/24 07:31 BMI result Body Mass Index 28.0 Const: Other: General: AO X 3, no acute distress Resp: CTA bilateral CVS: S1,S2,RRR GI: +BS, mild epig tenderness, no distention Skin: No rash Neuro: motor grossly intact Psych: appropriate affect Objective Data Active Medications Al Hydroxide/Mg Hydroxide (Magnesium Hydrox/Alum Hydrox 30 Ml Oral.Susp) 30 ml PO Q4H PRN PRN Reason: Heartburn Amlodipine Besylate (Amlodipine Besylate 5 Mg Tablet) 5 mg PO DAILY [facility]; Protocol Last Admin: 08/07/24 08:39 Dose: 5 mg Documented By: NATALIIA Calcium Carbonate (Calcium Carbonate 750 Mg Tab.Chew) 750 mg PO Q4H PRN PRN Reason: Heartburn Dextrose (Dextrose 50 % 25 Gm/50 Ml Syringe) 25 gm IVPUSH Q15M PRN; Protocol PRN Reason: per Hypoglycemia Standing Ord. Famotidine (Famotidine 20 Mg Tablet) 40 mg PO DAILY [facility] Last Admin: 08/07/24 08:39 Dose: 40 mg Documented By: NATALIIA Glucose (Glucose Gel 15 Gm Gel..Gram.) 15 gm PO Q15M PRN; Protocol PRN Reason: per Hypoglycemia Standing Ord. Hydromorphone HCl (Hydromorphone Hcl 1 Mg/Ml Syringe) 1 mg IVPUSH Q3H PRN; Protocol PRN Reason: sev Last Admin: 08/07/24 03:39 Dose: 1 mg Documented By: JELANI Hydromorphone HCl (Hydromorphone Hcl 0.5 Mg/0.5 Ml Syringe) 0.5 mg IVPUSH Q2H PRN; Protocol PRN Reason: Pain, Moderate(Pain Scale 4-6) Last Admin: 08/07/24 05:26 Dose: 0.5 mg Documented By: JELANI Comments: per pt request Hydroxyzine HCl (Hydroxyzine Hcl 25 Mg Tablet) 25 mg PO Q6H PRN PRN Reason: Anxiety Lactated Ringer's (Lr) 1,000 mls @ 125 mls/hr IVCONT .Q8H [facility] Last Admin: 08/07/24 02:32 Dose: 125 mls/hr Documented By: JELANI Acetaminophen (Ofirmev) 1,000 mg in 100 mls @ 400 mls/hr IV Q6H [facility] Stop: 08/07/24 19:29 Last Admin: 08/07/24 08:38 Dose: 400 mls/hr Documented By: NATALIIA Thiamine HCl 100 mg/ Sodium (Chloride) 101 mls @ 202 mls/hr IV DAILY [facility] Last Infusion: 08/06/24 21:30 Dose: Infused Documented By: ROLAN Folic Acid 1 mg/ Sodium (Chloride) 50.2 mls @ 100.4 mls/hr IV DAILY [facility] Insulin Glargine (Insulin Glargine,Hum.Rec.Anlog 100 Unit/Ml 10 Ml Vial) 10 unit SUBCUT BEDTIME [facility] Insulin Human Lispro (Insulin Lispro 100 Unit/Ml 3 Ml Vial) 0 unit SUBCUT QIDACHS [facility]; Protocol Last Admin: 08/07/24 08:34 Dose: 1 unit Documented By: NATALIIA Comments: pt. requested 1 unit, stated he knows his sugar will go down quick. Magnesium Hydroxide (Milk Of Magnesia 30 Ml Oral.Susp) 30 ml PO DAILY PRN PRN Reason: Constipation Melatonin (Melatonin 3 Mg Tablet) 6 mg PO BEDTIME PRN PRN Reason: Insomnia Ondansetron HCl (Ondansetron Hcl 4 Mg/2 Ml Vial) 4 mg IVPUSH Q8H PRN PRN Reason: Nausea and Vomiting Pharmacy Consult (Consult Rx Etoh Phenob Im/Po) 1 each MISCELLANE ONCE PRN; Protocol PRN Reason: Consult order Phenobarbital (Phenobarbital 15 Mg Tablet) 45 mg PO BID [facility] Stop: 08/09/24 09:01 Phenobarbital (Phenobarbital 15 Mg Tablet) 15 mg PO BID [facility] Stop: 08/11/24 09:01 Phenobarbital (Phenobarbital 15 Mg Tablet) 15 mg PO DAILY [facility] Stop: 08/13/24 09:01 Polyethylene Glycol (Polyethylene Glycol 3350 17 Gm Powd.Pack) 17 gm PO DAILY PRN PRN Reason: Constipation Sodium Chloride (0.9 % Sodium Chloride Flush 3 Ml Syringe) 3 ml IVFLUSH QSHIFT [facility] Last Admin: 08/07/24 02:34 Dose: 3 ml Documented By: JELANI Labs 08/06/24 13:15 08/06/24 13:15 Labs: Laboratory Results - last 24 hr 08/06/24 08/06/24 08/06/24 13:15 13:49 20:35 MCV 91.3 MCH 31.5 MCHC 34.5 RDW 14.0 Plt Count 187 MPV 9.9 Immature Gran % (Auto) 0.2 Neut % (Auto) 51.4 Lymph % (Auto) 33.8 [place] % (Auto) 12.2 H Eos % (Auto) 1.2 Baso % (Auto) 1.2 Lymph # (Auto) 1.7 [place] # (Auto) 0.6 Eos # (Auto) 0.1 Baso # (Auto) 0.1 Abs Immat Gran (auto) 0.01 Absolute Neuts (auto) 2.7 Absolute Nucleated RBC 0.000 Nucleated RBC % (auto) 0.0 Anion Gap 17 Estim Creat Clear Calc 145.8 Estimated GFR > 60 POC Glucose 220 H Random Glucose 197 H Calcium 10.3 H D Magnesium 1.7 Total Bilirubin 0.5 AST 249 H ALT 240 H Alkaline Phosphatase 75 Troponin I High Sens < 2.7 Total Protein 8.3 H Albumin 5.1 H Lipase 60 Urine Color Yellow Urine Appearance Clear Urine pH 5.5 Ur Specific [place] 1.025 Urine Protein 30 (1+) H Urine Glucose (UA) Negative Urine Ketones 15 Urine Blood Negative Urine Nitrite Negative Ur Leukocyte Esterase Negative Urine RBC 0-2 Urine WBC 0-5 Ur Squamous Epith Cells 0-2 Urine Bacteria None Seen Hyaline Casts 0-2 Urine Opiates Screen Not Detected Ur Buprenorphine Scrn Not Detected Ur Oxycodone Screen Not Detected Urine Methadone Screen Not Detected Urine Fentanyl Screen Not Detected Ur Barbiturates Screen Not Detected Ur Phencyclidine Scrn Not Detected Ur Amphetamines Screen Not Detected U Benzodiazepines Scrn Not Detected Urine Cocaine Screen Not Detected U Marijuana (THC) Screen Not Detected Ethyl Alcohol 12 08/07/24 07:33 MCV MCH MCHC RDW Plt Count MPV Immature Gran % (Auto) Neut % (Auto) Lymph % (Auto) [place] % (Auto) Eos % (Auto) Baso % (Auto) Lymph # (Auto) [place] # (Auto) Eos # (Auto) Baso # (Auto) Abs Immat Gran (auto) Absolute Neuts (auto) Absolute Nucleated RBC Nucleated RBC % (auto) Anion Gap Estim Creat Clear Calc Estimated GFR POC Glucose 216 H Random Glucose Calcium Magnesium Total Bilirubin AST ALT Alkaline Phosphatase Troponin I High Sens Total Protein Albumin Lipase Urine Color Urine Appearance Urine pH Ur Specific [place] Urine Protein Urine Glucose (UA) Urine Ketones Urine Blood Urine Nitrite Ur Leukocyte Esterase Urine RBC Urine WBC Ur Squamous Epith Cells Urine Bacteria Hyaline Casts Urine Opiates Screen Ur Buprenorphine Scrn Ur Oxycodone Screen Urine Methadone Screen Urine Fentanyl Screen Ur Barbiturates Screen Ur Phencyclidine Scrn Ur Amphetamines Screen U Benzodiazepines Scrn Urine Cocaine Screen U Marijuana (THC) Screen Ethyl Alcohol Assessment and Plan (1) Acute on chronic pancreatitis: Status: Acute Plan 33-year-old male with history of insulin-dependent diabetes, alcohol use disorder presenting with abdominal pain and finding on the CT scan consistent with acute pancreatitis, high risk for alcohol withdrawal. Acute pancreatitis start liquid diet ivf dilaudid and oxy for pain Alohol use disorder, high risk for withdrawal phenobarbital protol folic acid and thiamine replacement insulin dependent diabetes Sliding scale insulin while NPO, hold lantus HTN Norvasc dvt prophylaxis: low risk, early ambulation full code Quality Stroke Does the patient have a stroke diagnosis?: No VTE Prior VTE?: No VTE Risk Level:: Medical - low VTE Device Contraindication: Treatment Not Indicated VTE Drug Contraindication: Treatment Not Indicated
--- NOTE | 2024-08-07 10:42 | MHC.CM.PN ---
IMM DELIVERED PT LIVES WITH SPOUSE AND IS FUNCTIONALLY INDEP. PT HAS 21/HRS/WK [facility]IA [place] YEARS. NO DME. PT DECLINES TO COMPLETE A HCP AT THIS TIME. PCP DR. SURESH AT [facility]. DP: HOME WITH [employer] [facility] [employer]. PT HAS OWN [facility] HOME. CM WILL CONTINUE TO FOLLOW FOR ANY CHANGE TO DC PLAN/NEEDS.
[2024-08-07 11:24] LABS: Glucose, Whole Blood 187 mg/dL (60-115)
[2024-08-07] MEDS: ondansetron HCL 4 MG/2 ML VIAL IVPUSH (12:19)
[2024-08-07 15:56] LABS: Glucose, Whole Blood 164 mg/dL (60-115)
[2024-08-07] MEDS: Enoxaparin Sodium 40 MG/0.4 ML SYRINGE SUBCUT (17:22)
[2024-08-07] MEDS: Thiamine HCL 100 MG in 0.9 % Sodium Chloride 100 ML 202 MG IV (19:11)
[2024-08-07] MEDS: Folic Acid 1 MG in 0.9 % Sodium Chloride 50 ML 100.4 MG IV (19:53)
[2024-08-07 20:10] LABS: Glucose, Whole Blood 200 mg/dL (60-115)
[2024-08-07] MEDS: PHENobarbitaL 15 MG TABLET 45 MG PO (20:20)
[2024-08-07] MEDS: Insulin Glargine,Hum.rec.anlog 100 UNIT/ML 10 ML VIAL 10 UNIT SUBCUT (20:22)
--- NOTE | 2024-08-07 20:25 | PC.NURSE ---
pt's blood sugar was 200.pt refused lispro insulin and only would take 5 units of lantus.
[2024-08-07] MEDS: Melatonin 3 MG TABLET 6 MG PO (22:01)
[2024-08-07 22:18] LABS: Hematocrit 37.9 % (42.0-52.0); Hemoglobin 13.2 g/dl (14.0-18.0); Mean Corpuscular HGB Conc 34.8 g/dl (31.0-36.0); Mean Corpuscular Hemoglobin 31.5 pg (27.0-33.0); Mean Corpuscular Volume 90.5 fL (80.0-98.0); Mean Platelet Volume 9.7 fL (9.4-12.4); Platelet Count 161 X10*3/uL (160-400); Red Blood Count 4.19 X10*6/uL (4.60-5.80); Red Cell Distribution Width 13.2 % (11.0-16.0); White Blood Count 4.2 X10*3/uL (4.8-10.8)
[2024-08-08] MEDS: HYDROmorphone HCl 1 MG/ML SYRINGE IVPUSH ×3 (01:08→08:28)
[2024-08-08] MEDS: Lactated Ringers 1,000 ML 125 ML IVCONT (01:11)
[2024-08-08 03:17] VITALS: BP 140/94; PULSE 73; RESP 18; TEMP 36.2; O2SAT 99
[2024-08-08] MEDS: Calcium Carbonate 750 MG TAB.CHEW PO ×2 (03:22→08:24)
[2024-08-08 06:51] LABS: Lipase 14 U/L (8-78)
[2024-08-08 06:54] LABS: Anion Gap 12 (12-20); Blood Urea Nitrogen 8 mg/dL (9-16); Calcium 9.5 mg/dL (8.4-10.2); Carbon Dioxide 29 mmol/L (22-29); Chloride 96 mmol/L (96-108); Creatinine Clr Calc Pharmacy 160.7; Estimated Glomerular Filt Rate > 60; Glucose Random 216 mg/dL (60-115); Potassium 4.3 mmol/L (3.3-5.1); Sodium 133 mmol/L (135-145)
[2024-08-08 07:27] VITALS: BP 135/94; PULSE 70; RESP 16; TEMP 36.3; O2SAT 99
[2024-08-08 07:32] LABS: Glucose, Whole Blood 195 mg/dL (60-115)
[2024-08-08] MEDS: Famotidine 20 MG TABLET 40 MG PO (08:24)
[2024-08-08] MEDS: PHENobarbitaL 15 MG TABLET 45 MG PO (08:25)
[2024-08-08] MEDS: amLODIPine Besylate 5 MG TABLET PO (08:25)
[2024-08-08] MEDS: Insulin Lispro 100 UNIT/ML 3 ML VIAL SUBCUT ×2 (08:27→12:18)
[2024-08-08 08:28] VITALS: RESP 18
[2024-08-08] MEDS: ondansetron HCL 4 MG/2 ML VIAL IVPUSH (08:31)
[2024-08-08] MEDS: 0.9 % Sodium Chloride Flush 3 ML SYRINGE IVFLUSH (08:34)
--- NOTE | 2024-08-08 08:40 | HO.PM.IMPN ---
Subjective Subjective Date of Service: 08/08/24 Interval History: f/u on acute pancreatitis he's still reporting some discomfort but pain is better and wants to try regular food Physical Exam Vital Signs: Vital Signs: Last Vital Signs Temp 97.3 F 08/08/24 07:27 Pulse 70 08/08/24 07:27 Resp 18 08/08/24 08:28 BP 135/94 H 08/08/24 07:27 Pulse Ox 99 08/08/24 07:27 O2 Del Method Room Air 08/08/24 07:27 BMI result Body Mass Index 28.0 Const: Other: General: AO X 3, no acute distress Resp: CTA bilateral CVS: S1,S2,RRR GI: +BS, minimal epig tenderness, no distention Skin: No rash Neuro: motor grossly intact Psych: appropriate affect Objective Data Active Medications Al Hydroxide/Mg Hydroxide (Magnesium Hydrox/Alum Hydrox 30 Ml Oral.Susp) 30 ml PO Q4H PRN PRN Reason: Heartburn Amlodipine Besylate (Amlodipine Besylate 5 Mg Tablet) 5 mg PO DAILY [facility]; Protocol Last Admin: 08/08/24 08:25 Dose: 5 mg Documented By: NATALIIA Calcium Carbonate (Calcium Carbonate 750 Mg Tab.Chew) 750 mg PO Q4H PRN PRN Reason: Heartburn Last Admin: 08/08/24 08:24 Dose: 750 mg Documented By: NATALIIA Dextrose (Dextrose 50 % 25 Gm/50 Ml Syringe) 25 gm IVPUSH Q15M PRN; Protocol PRN Reason: per Hypoglycemia Standing Ord. Enoxaparin Sodium (Enoxaparin Sodium 40 Mg/0.4 Ml Syringe) 40 mg SUBCUT Q24H [facility] Last Admin: 08/07/24 17:22 Dose: 40 mg Documented By: NATALIIA Famotidine (Famotidine 20 Mg Tablet) 40 mg PO DAILY [facility] Last Admin: 08/08/24 08:24 Dose: 40 mg Documented By: NATALIIA Glucose (Glucose Gel 15 Gm Gel..Gram.) 15 gm PO Q15M PRN; Protocol PRN Reason: per Hypoglycemia Standing Ord. Hydromorphone HCl (Hydromorphone Hcl 1 Mg/Ml Syringe) 1 mg IVPUSH Q3H PRN; Protocol PRN Reason: sev Last Admin: 08/08/24 08:28 Dose: 1 mg Documented By: NATALIIA Hydromorphone HCl (Hydromorphone Hcl 0.5 Mg/0.5 Ml Syringe) 0.5 mg IVPUSH Q2H PRN; Protocol PRN Reason: Pain, Moderate(Pain Scale 4-6) Last Admin: 08/07/24 05:26 Dose: 0.5 mg Documented By: JELANI Comments: per pt request Hydroxyzine HCl (Hydroxyzine Hcl 25 Mg Tablet) 25 mg PO Q6H PRN PRN Reason: Anxiety Lactated Ringer's (Lr) 1,000 mls @ 125 mls/hr IVCONT .Q8H [facility] Last Admin: 08/08/24 01:11 Dose: 125 mls/hr Documented By: THANIA Folic Acid 1 mg/ Sodium (Chloride) 50.2 mls @ 100.4 mls/hr IV DAILY [facility] Last Infusion: 08/07/24 20:30 Dose: Infused Documented By: THANIA Thiamine HCl 100 mg/ Sodium (Chloride) 101 mls @ 202 mls/hr IV Q24H [facility] Last Infusion: 08/07/24 19:45 Dose: Infused Documented By: THANIA Insulin Glargine (Insulin Glargine,Hum.Rec.Anlog 100 Unit/Ml 10 Ml Vial) 10 unit SUBCUT BEDTIME [facility] Last Admin: 08/07/24 20:22 Dose: 5 unit Documented By: THANIA Comments: pt only wanted to take 5 units Insulin Human Lispro (Insulin Lispro 100 Unit/Ml 3 Ml Vial) 0 unit SUBCUT QIDACHS [facility]; Protocol Last Admin: 08/08/24 08:27 Dose: 2 unit Documented By: NATALIIA Comments: pt. wanted to wait for Reg. breakfast Magnesium Hydroxide (Milk Of Magnesia 30 Ml Oral.Susp) 30 ml PO DAILY PRN PRN Reason: Constipation Melatonin (Melatonin 3 Mg Tablet) 6 mg PO BEDTIME PRN PRN Reason: Insomnia Last Admin: 08/07/24 22:01 Dose: 6 mg Documented By: THANIA Ondansetron HCl (Ondansetron Hcl 4 Mg/2 Ml Vial) 4 mg IVPUSH Q8H PRN PRN Reason: Nausea and Vomiting Last Admin: 08/08/24 08:31 Dose: 4 mg Documented By: NATALIIA Pharmacy Consult (Consult Rx Etoh Phenob Im/Po) 1 each MISCELLANE ONCE PRN; Protocol PRN Reason: Consult order Phenobarbital (Phenobarbital 15 Mg Tablet) 45 mg PO BID [facility] Stop: 08/09/24 09:01 Last Admin: 08/08/24 08:25 Dose: 45 mg Documented By: NATALIIA Phenobarbital (Phenobarbital 15 Mg Tablet) 15 mg PO BID [facility] Stop: 08/11/24 09:01 Phenobarbital (Phenobarbital 15 Mg Tablet) 15 mg PO DAILY [facility] Stop: 08/13/24 09:01 Polyethylene Glycol (Polyethylene Glycol 3350 17 Gm Powd.Pack) 17 gm PO DAILY PRN PRN Reason: Constipation Sodium Chloride (0.9 % Sodium Chloride Flush 3 Ml Syringe) 3 ml IVFLUSH QSHIFT [facility] Last Admin: 08/08/24 08:34 Dose: 3 ml Documented By: NATALIIA Labs 08/07/24 22:13 08/08/24 05:52 Labs: Laboratory Results - last 24 hr 08/07/24 08/07/24 08/07/24 11:20 15:52 20:05 MCV MCH MCHC RDW Plt Count MPV Absolute Nucleated RBC Nucleated RBC % (auto) Hold Purple Top Anion Gap Estim Creat Clear Calc Estimated GFR POC Glucose 187 H 164 H 200 H Random Glucose Calcium Lipase 08/07/24 08/08/24 08/08/24 22:13 05:52 07:26 MCV 90.5 MCH 31.5 MCHC 34.8 RDW 13.2 Plt Count 161 MPV 9.7 Absolute Nucleated RBC 0.000 Nucleated RBC % (auto) 0.0 Hold Purple Top SEE NOTE Anion Gap 12 Estim Creat Clear Calc 160.7 Estimated GFR > 60 POC Glucose 195 H Random Glucose 216 H Calcium 9.5 D Lipase 14 Assessment and Plan (1) Acute on chronic pancreatitis: Status: Acute Plan 33-year-old male with history of insulin-dependent diabetes, alcohol use disorder presenting with abdominal pain and finding on the CT scan consistent with acute pancreatitis, high risk for alcohol withdrawal. Acute pancreatitis start liquid diet, advance to regular per his request ivf dilaudid and oxy for pain Alohol use disorder, high risk for withdrawal but no sings for withdrawal at the present phenobarbital protol folic acid and thiamine replacement insulin dependent diabetes Sliding scale insulin while NPO, hold lantus HTN Norvasc dvt prophylaxis: low risk, early ambulation full code Quality Stroke Does the patient have a stroke diagnosis?: No VTE Prior VTE?: No VTE Risk Level:: Medical - low VTE Device Contraindication: Treatment Not Indicated VTE Drug Contraindication: Treatment Not Indicated
--- NOTE | 2024-08-08 08:43 | P.DS_ITS ---
DS: Providers Provider Date of Service: 08/08/24 Date of admission: 08/06/24 16:53 Date of discharge: 08/08/24 Primary care physician: Unknown Physician DS: Diagnosis Discharge Diagnosis (1) Acute on chronic pancreatitis: Status: Acute DS: Summary Hospital Course Hospital Course: Chief Complaint: abdominal pain 33 year old male with history HTN, DM, alcohol related pancreatitis, alcohol use disorder who has been drinking heavily the entire weekend, last drank this mornign and presents with suden onset of severe epigastric pain, no radiation, no n/v, pain is similar to that of prior episodes of pancreatitis. Lipase level is normal yet A CT demonstrates evicdence of acute pancreatitis. Treated with IV dilaudid with persistent pain and is being admitted for further management Hospital course: Patient was admitted and treated with IVF, IV pain medication and diet slowly advaned until he was tolerating regular diet. Lipase level has remained normal, he has history of similar presenation in the past. He was seen by addiction med and given resources for alcohol abstinence Time Attestation Discharge Coordination Time (in mins): 35 Quality: Safe Use of Opioids Does Pt have an Active Cancer Diagnosis on the Problem List?: No Quality: Stroke Does the patient have a stroke diagnosis?: No Physical Exam Vital Signs: Vital Signs: Last Vital Signs Temp 97.3 F 08/08/24 07:27 Pulse 70 08/08/24 07:27 Resp 18 08/08/24 08:28 BP 135/94 H 08/08/24 07:27 Pulse Ox 99 08/08/24 07:27 O2 Del Method Room Air 08/08/24 07:27 BMI result Body Mass Index 28.0 DS: Data Data Completed and Pending Completed studies during hospitalization [Text1]: Procedures Detoxification Services for Substance Abuse Treatment (01/04/24) Labs on day of discharge: Laboratory Results - last 24 hr 08/07/24 08/07/24 08/07/24 11:20 15:52 20:05 WBC RBC Hgb Hct MCV MCH MCHC RDW Plt Count MPV Absolute Nucleated RBC Nucleated RBC % (auto) Hold Purple Top Sodium Potassium Chloride Carbon Dioxide Anion Gap BUN Creatinine Estim Creat Clear Calc Estimated GFR POC Glucose 187 H 164 H 200 H Random Glucose Calcium Lipase 08/07/24 08/08/24 08/08/24 22:13 05:52 07:26 WBC 4.2 L RBC 4.19 L Hgb 13.2 L Hct 37.9 L MCV 90.5 MCH 31.5 MCHC 34.8 RDW 13.2 Plt Count 161 MPV 9.7 Absolute Nucleated RBC 0.000 Nucleated RBC % (auto) 0.0 Hold Purple Top SEE NOTE Sodium 133 L Potassium 4.3 Chloride 96 Carbon Dioxide 29 Anion Gap 12 BUN 8 L Creatinine 0.66 Estim Creat Clear Calc 160.7 Estimated GFR > 60 POC Glucose 195 H Random Glucose 216 H Calcium 9.5 D Lipase 14 Discharge Plan Discharge Anticipated Discharge Date/Time: 08/08/24 12:51 Patient Disposition: Home, Self-Care Discharge Diagnosis: Acute alcoholic pancreatitis Referrals: Physician,Unknown J [Physician, Medical] - 1 Week Referral Note: F/U with PCP for refills on Acamprosate. If unable to further obtain from PCP please call [facility] at [phone] Discharge Medications: New acamprosate 333 mg tablet,delayed release (DR/EC) 666 mg PO TID Qty: 180 0RF oxycodone 5 mg tablet 5 mg PO Q6H PRN (Reason: pain (scale score 7-10)) Qty: 14 0RF Rx Instructions: Partial Fill upon patient request. Continued amlodipine 5 mg tablet 5 mg PO DAILY insulin aspart U-100 [Novolog FlexPen U-100 Insulin] 100 unit/mL (3 mL) insulin pen 2 - 10 unit subcut TID insulin glargine [Lantus Solostar U-100 Insulin] 100 unit/mL (3 mL) insulin pen 10 - 12 unit subcut BEDTIME famotidine 20 mg tablet 40 mg PO DAILY Discharge Orders: Discharge Order (Routine); Ordered 08/08/24 Ordered By: Umberto Garcia Diet: Advance to usual diet Activity on Discharge: As tolerated Stand Alone Forms: Patient Portal Discharge page, Work/School Release Print Language: Lao Care Plan Goals: recovery from acute pancreaitis Health Concerns: acute pancreatitis, alchol use disorder Plan of Treatment: Avoid fatty food for the next several days, drink plenty of fluid avoid alcohol follow up with your doctor in a week, call for appointment Assessment: see above Discharge Date/Time: 08/08/24 13:39
[2024-08-08] MEDS: Folic Acid 1 MG in 0.9 % Sodium Chloride 50 ML 100.4 MG IV (09:50)
[2024-08-08 11:58] VITALS: BP 114/63; PULSE 75; RESP 16; TEMP 36.4; O2SAT 97
[2024-08-08 11:59] LABS: Glucose, Whole Blood 250 mg/dL (60-115)
[2024-08-08 12:19] VITALS: RESP 18
[2024-08-08] MEDS: HYDROmorphone HCl 0.5 MG/0.5 ML SYRINGE IVPUSH (12:19)
== END 2024-08-08 13:39 | disposition home or self-care (01) | DRG 440 ==
LOC: HO.ED 13:15 → HO.EDOVER 17:30 → HO.S3 23:45
PROVIDERS: Physician Assistant; Admitting Provider Internal Medicine; Emergency Provider Emergency Medicine Emergency Medical Services; PCP Internal Medicine; Visit Provider Internal Medicine
DX: K85.20 Alcohol induced acute pancreatitis without necrosis or infection (principal); K86.0 Alcohol-induced chronic pancreatitis; F17.210 Nicotine dependence, cigarettes, uncomplicated; F10.10 Alcohol abuse, uncomplicated; E11.9 Type 2 diabetes mellitus without complications; I10 Essential (primary) hypertension; Z71.6 Tobacco abuse counseling; Z79.4 Long term (current) use of insulin; Z79.899 Other long term (current) drug therapy
CPT/HCPCS: 36415; 74177; 80048; 80053; 80307; 81001; 82947; 83690; 83735; 84484; 85025; 85027; 93005; 99285; J0131; J1171; J1650; J1808; J2405; J2560; J3360; J3411; J7120; S9485

== ENCOUNTER → 2024-08-06 12:13 | Outpatient (BNV) | payer OTHER, SELFPAY | PROVIDERS: Admitting Provider Internal Medicine; Emergency Provider Emergency Medicine Emergency Medical Services; Visit Provider Internal Medicine | DX: R07.9 Chest pain, unspecified (principal) | CPT/HCPCS: 93010 ==

== ENCOUNTER → 2024-08-06 13:08 | Outpatient (BNV) | payer OTHER, SELFPAY | PROVIDERS: Emergency Provider Emergency Medicine Emergency Medical Services; Visit Provider Radiology Diagnostic Radiology | DX: K76.0 Fatty (change of) liver, not elsewhere classified (principal); K86.2 Cyst of pancreas | CPT/HCPCS: 74177 ==

== ENCOUNTER → 2024-08-06 16:53 | Outpatient (BNV) | payer OTHER, SELFPAY | PROVIDERS: Admitting Provider Internal Medicine; Emergency Provider Emergency Medicine Emergency Medical Services; Visit Provider Internal Medicine | DX: K85.90 Acute pancreatitis without necrosis or infection, unspecified (principal); K86.1 Other chronic pancreatitis | CPT/HCPCS: 99239 ==

== ENCOUNTER 2024-08-20 20:25 | Emergency (ER) | payer OTHER, SELFPAY ==
--- NOTE | 2024-08-20 20:40 | ED.GENADULT ---
HPI - General Adult General Chief complaint: Abdominal Pain Stated complaint: pancrititis/ left shoulder pain Time Seen by Provider: 08/20/24 21:54 History of Present Illness ED Provider: Carrillo Metcalf MD HPI narrative: 33-year-old male with recent admission for alcohol-induced pancreatitis. Says he has recurrent epigastric pain similar and consistent with previous pancreatitis. In the interim since August 06 he has also had a fall where he was evaluated for the trauma at [facility] and found to have left shoulder fracture he is not sure what bone it was was not given a sling or splint and was told to follow up with Orthopedics. He is complaining mostly of epigastric pain but also worsening shoulder pain only taking Tylenol at home . Occasional scant nonbloody nonbilious vomiting. No GI bleeding Related Data Home Medications ?Medication ?Instructions ?Recorded ?Confirmed amlodipine 5 mg tablet 5 mg PO DAILY 01/04/24 08/06/24 insulin aspart U-100 100 unit/mL 2 - 10 unit subcut TID 01/04/24 08/06/24 (3 mL) subcutaneous pen (Novolog FlexPen U-100 Insulin aspart) insulin glargine 100 unit/mL (3 10 - 12 unit subcut BEDTIME 01/04/24 08/06/24 mL) subcutaneous pen (Lantus Solostar U-100 Insulin) famotidine 20 mg tablet 40 mg PO DAILY 08/06/24 08/06/24 Previous Rx's ?Medication ?Instructions ?Recorded acamprosate 333 mg tablet,delayed 666 mg (2 x 333 mg) PO TID #180 08/08/24 release tabs oxycodone 5 mg tablet 5 mg PO Q6H PRN pain (scale score 08/08/24 7-10) #14 tabs morphine 15 mg immediate release 15 mg PO BID PRN pain 2 days #4 08/20/24 tablet tabs morphine 15 mg tablet,extended 15 mg PO Q12H #4 tabs 08/21/24 release (MS Contin) Allergies Allergy/AdvReac Type Severity Reaction Status Date / Time No Known Allergies Allergy Verified 08/20/24 20:45 [facility] Social History Social History Household Members: Spouse Housing: House Do you presently have visiting nurse or other home services: No Alcohol intake: current Alcohol intake frequency: a few times a week Alcohol type: hard liquor Comment: previously declined alarm and/or camera, previous shift per d/santiago brooks Patient Tobacco Use Status: Current everyday Tobacco user Tobacco use type: Cigarette e-Cigarette/Vaping Use: Former Use Second Hand Smoke Exposure: No Use of substances other than those prescribed or required for medical reasons: No Substance Use Type: Marijuana Advance Directives: No Advance Directives Information Provided: No service: No Physical Exam ED Vital Signs: Vital Signs - 24 hr 08/20/24 20:44 08/20/24 22:09 08/20/24 23:58 Temperature 98.7 F 98.1 F Pulse Rate 90 67 65 Respiratory Rate 16 18 16 Blood Pressure 140/105 H 155/100 H 148/85 H Pulse Oximetry 97 99 99 Oxygen Delivery Method Room Air Room Air Room Air BMI result Body Mass Index 27.8 Const Other: EXAM: Gen: Alert, awake, well appearing, well hydrated. Head: Atraumatic Eyes: Anicteric, Normal conjunctiva. ENT: Moist mucosa, no pallor. ? Neck: Supple. Skin: ?No observable rash or bruising on exposed or examined skin Respiratory: Breathing comfortably, No distress.Clear to auscultation bilaterally, symmetric chest expansion, No wheeze, rales, ronchi. Cardiovascular: Regular rate and rhythm. No murmurs or rub. Well perfused periphery, warm extremities. No edema. ? Abdominal: Mild midepigastric tenderness. Soft, no objective distension. No palpable masses or obvious organomegaly. ?No guarding, no rebound tenderness or other peritoneal findings. : No flank tenderness. Neuro: Alert. Gross movement of all extremities intact. ? Psych: Calm. Cooperative. MSK: Mild swelling around the shoulder with diffuse mild tenderness. Upper arm compartments are soft and he is neurovascularly intact left upper extremity no clavicle deformity. Vital signs: See flowsheet Course Course Course Narrative: This is a rapid medical exam performed by Catalina German NP: Additional HPI, ROS, PE not included below will be deferred to primary provider. Patient is a 33-year-old male with history of alcohol use, chronic pancreatitis presenting with complaint of abdominal pain as well as left shoulder pain. Seen at [facility] on 08/11, dx with avulsion fxs to left humeral tuberosity and medial humeral head. Waiting for ortho f/u. Plan: labs Reevaluation(s) Reevaluation #1: Patient called requesting to of the medication sent to another pharmacy I sent 4 tablets on morphine [address] his pharmacy Dr Mayo 08/21/2024 Medications Administered Discontinued Medications Generic Name Dose Route Start Last Admin Trade Name Elodia PRN Reason Stop Dose Admin Acetaminophen 975 mg 08/20/24 21:56 08/20/24 22:28 Acetaminophen 325 Mg Tablet PO 08/20/24 21:57 Not Given ONCE ONE Hydromorphone HCl 1 mg 08/20/24 23:45 08/20/24 23:58 Hydromorphone Hcl 2 Mg Tablet PO 08/20/24 23:46 1 mg ONCE ONE Administration Morphine Sulfate 15 mg 08/20/24 22:26 08/20/24 23:03 Morphine Sulfate Immed Release 15 Mg Tablet PO 08/20/24 22:27 15 mg ONCE ONE Administration Ondansetron HCl 4 mg 08/20/24 21:56 08/20/24 22:15 Ondansetron Odt 4 Mg Tab.Rapdis TRANSLINGU 08/20/24 21:57 4 mg ONCE ONE Administration Sucralfate 1 gm 08/20/24 22:04 08/20/24 22:17 Sucralfate Oral Suspension 1 Gm/10 Ml Oral.Susp PO 08/20/24 22:05 1 gm ONCE ONE Administration Medical Decision Making Medical Decision Making MDM Narrative: Medical Decision Making: Epigastric pain recurrent probably recurrent pancreatitis due to acknowledged heavy drinking again. No GI bleeding. Subtle drop in hemoglobin but he denies coffee-grounds emesis or melena. Mild tenderness. Was just scanned in late July I do not find any reason to repeat this at this time. Analgesia, antiemetics and topical relief. The patient is quite upset and reports that he feels he needs to stay or be admitted in the hospital. The patient has been quite comfortable appearing in the emergency department he has reassuring lab work and vital signs. He has not been distressed. I discussed with him that essentially the treatment is bowel rest, NPO and analgesia. I have provided him with a prescription of oral morphine at home and recommended avoiding alcohol. Preliminary Favored Differential Diagnosis: Recurrent pancreatitis, gastritis, PUD, GERD among additional considered etiologies Testing Interpreted Independently: Not Applicable Radiology or Lab testing Results Reviewed: No lipase elevation no other actionable lab findings Consults: Not Applicable Independent Historians/External Chart Reviews: Not Applicable Social Determinants of Health Impacting MDM/Planning: Not Applicable Lab Data 08/20/24 21:02 08/20/24 21:02 Labs: Lab Results 08/20/24 Range/Units 21:02 WBC 8.0 (4.8-10.8) X10*3/uL RBC 4.06 L (4.60-5.80) X10*6/uL Hgb 12.9 L (14.0-18.0) g/dl Hct 36.6 L (42.0-52.0) % MCV 90.1 (80.0-98.0) fL MCH 31.8 (27.0-33.0) pg MCHC 35.2 (31.0-36.0) g/dl RDW 14.0 (11.0-16.0) % Plt Count 296 D (160-400) X10*3/uL MPV 9.2 L (9.4-12.4) fL Immature Gran % (Auto) 0.4 (0.0-0.4) % Neut % (Auto) 61.1 (45-73) % Lymph % (Auto) 27.5 (20-40) % Lawrence % (Auto) 8.6 (2-11) % Eos % (Auto) 1.3 (0-4) % Baso % (Auto) 1.1 (0-2) % Lymph # (Auto) 2.2 (1.2-4.9) X10*3/uL Lawrence # (Auto) 0.7 (0.1-1.2) X10*3/uL Eos # (Auto) 0.1 (0.0-0.4) X10*3/uL Baso # (Auto) 0.1 (0.0-0.2) X10*3/uL Abs Immat Gran (auto) 0.03 (0.00-0.03) X10*3/uL Absolute Neuts (auto) 4.9 (2.0-8.3) x10*3/uL Absolute Nucleated RBC 0.000 (0.0-0.012) X10*3/uL Nucleated RBC % (auto) 0.0 (0.0-0.2) /100WBC PT 11.0 (10.9-12.4) SEC INR 1.0 (0.9-1.1) Sodium 138 (135-145) mmol/L Potassium 3.8 (3.3-5.1) mmol/L Chloride 102 (96-108) mmol/L Carbon Dioxide 19 L (22-29) mmol/L Anion Gap 21 H (12-20) BUN 15 (9-16) mg/dL Creatinine 0.63 (0.5-1.4) mg/dL Estim Creat Clear Calc 167.9 Estimated GFR > 60 Random Glucose 184 H (60-115) mg/dL Calcium 9.0 (8.4-10.2) mg/dL Total Bilirubin 0.4 (0.0-1.0) mg/dL AST 127 H (5-37) U/L ALT 95 H (0-40) U/L Alkaline Phosphatase 85 (39-117) U/L Troponin I High Sens 4.1 D (<3.5-35.0) ng/L Total Protein 7.1 (6.5-8.0) g/dL Albumin 4.3 (3.5-5.0) g/dL Triglycerides 159 H (<150) mg/dL Amylase 52 (28-100) U/L Lipase 32 (8-78) U/L Ethyl Alcohol 65 mg/dL Discharge Plan Discharge Clinical Impression: Pancreatitis Patient Disposition: Home, Self-Care Instructions: Pancreatitis (ED) Additional Instructions: DISCHARGE DIAGNOSES: Abdominal pain likely pancreatitis recurrence HISTORY OF PRESENTATION: ?Upper abdominal pain vomiting EMERGENCY DEPARTMENT COURSE,TESTS, TREATMENTS: While in the ED today you had lab work that was reassuring with no elevated pancreas enzyme. We gave you morphine Carafate topical stomach soothing medicine. DISCHARGE MEDICATIONS: We brought your for a few days of morphine as needed for only severe pain. We recommend taking omeprazole [id number] antacid for the next few days FOLLOW-UP: ?Call your primary or general physician soon as possible to discuss your symptoms, your ED visit and to discuss follow up plans Call PCP for follow up continue with previously scheduled and planned orthopedic follow up through [facility] for your known previously diagnosed left shoulder fracture INSTRUCTIONS ?& RETURN PRECAUTIONS: If any symptoms change first call your primary physician, if it is after-hours your primary doctors office should have a provider clinical account liaison you can speak with. If the symptoms are severe or very concerning to you then call 911 or return to the ED. Stop drinking alcohol. No spicy hot or greasy foods or caffeine. Carrillo Metcalf MD Emergency Physician [facility] Prescriptions: New morphine 15 mg tablet 15 mg PO BID PRN (Reason: pain) 2 Days Qty: 4 0RF Rx Instructions: Partial Fill upon patient request. morphine [MS Contin] 15 mg tablet extended release 15 mg PO Q12H Qty: 4 0RF Rx Instructions: Partial Fill upon patient request. No Action amlodipine 5 mg tablet 5 mg PO DAILY insulin aspart U-100 [Novolog FlexPen U-100 Insulin] 100 unit/mL (3 mL) insulin pen 2 - 10 unit subcut TID insulin glargine [Lantus Solostar U-100 Insulin] 100 unit/mL (3 mL) insulin pen 10 - 12 unit subcut BEDTIME famotidine 20 mg tablet 40 mg PO DAILY acamprosate 333 mg tablet,delayed release (DR/EC) 666 mg PO TID Qty: 180 0RF oxycodone 5 mg tablet 5 mg PO Q6H PRN (Reason: pain (scale score 7-10)) Qty: 14 0RF Rx Instructions: Partial Fill upon patient request. Interventions: ED Discharge Assessment Last Done: 08/20/24 23:58 Discharge Date/Time: 08/21/24 00:03 Print Language: Kosovan
--- NOTE | 2024-08-20 20:41 | ECG_ITS ---
Test Reason : shoulder pain Blood Pressure : */* mmHG Vent. Rate : 80 BPM Atrial Rate : 80 BPM P-R Int : 158 ms QRS Dur : 92 ms QT Int : 366 ms P-R-T Axes : 44 41 25 degrees QTcB Int : 422 ms Normal sinus rhythm Normal ECG When compared with ECG of 06-Aug-2024 12:29, No significant change was found Referred By: Shaylee German Electronically Signed By: Moe Marc
[2024-08-20 20:44] VITALS: BP 140/105; PULSE 90; RESP 16; TEMP 37.1; O2SAT 97; BMI 27.8
[2024-08-20 21:07] LABS: MANUAL DIFF FLAG NO
[2024-08-20 21:10] LABS: Hematocrit 36.6 % (42.0-52.0); Hemoglobin 12.9 g/dl (14.0-18.0); Imm Gran Abs Auto 0.03 X10*3/uL (0.00-0.03); Imm Gran Pct Auto 0.4 % (0.0-0.4); Lymphocytes Absolute Auto 2.2 X10*3/uL (1.2-4.9); Mean Corpuscular HGB Conc 35.2 g/dl (31.0-36.0); Mean Corpuscular Hemoglobin 31.8 pg (27.0-33.0); Mean Corpuscular Volume 90.1 fL (80.0-98.0); NRBC Abs Auto 0.000 X10*3/uL (0.0-0.012); NRBC Pct Auto 0.0 /100WBC (0.0-0.2); Platelet Count 296 X10*3/uL (160-400); Red Blood Count 4.06 X10*6/uL (4.60-5.80); White Blood Count 8.0 X10*3/uL (4.8-10.8)
[2024-08-20 21:16] LABS: INTERNATIONAL NORM RATIO 1.0 (0.9-1.1); Prothrombin Time 11.0 SEC (10.9-12.4)
[2024-08-20 21:26] LABS: Alanine Aminotransferase 95 U/L (0-40); Albumin Level 4.3 g/dL (3.5-5.0); Alkaline Phosphatase 85 U/L (39-117); Amylase 52 U/L (28-100); Anion Gap 21 (12-20); Aspartate Amino Transferase 127 U/L (5-37); Blood Urea Nitrogen 15 mg/dL (9-16); Calcium 9.0 mg/dL (8.4-10.2); Carbon Dioxide 19 mmol/L (22-29); Chloride 102 mmol/L (96-108); Creatinine Clr Calc Pharmacy 167.9; Estimated Glomerular Filt Rate > 60; Lipase 32 U/L (8-78); Potassium 3.8 mmol/L (3.3-5.1); Sodium 138 mmol/L (135-145); Total Protein 7.1 g/dL (6.5-8.0); Triglycerides 159 mg/dL (<150)
[2024-08-20 21:31] LABS: Troponin-I High Sensitivity 4.1 ng/L (<3.5-35.0)
[2024-08-20 22:09] VITALS: BP 155/100; PULSE 67; RESP 18; O2SAT 99
[2024-08-20] MEDS: Sucralfate Oral Suspension 1 GM/10 ML ORAL.SUSP PO (22:17)
[2024-08-20] MEDS: Morphine Sulfate Immed Release 15 MG TABLET PO (23:03)
--- NOTE | 2024-08-20 23:12 | PC.NURSE ---
Medicated patient with ordered morphine, letting him know doctor plans to d/c with same oral medication for pain. Pt stating he cannot go home with this kind of pain, he cannot eat, he cannot drink, he will just be back in the morning. Requested to speak to doctor taking care of him. I cannot go home.
--- NOTE | 2024-08-20 23:15 | PC.NURSE ---
Pt given water to have medication with, has not vomited in ED.
[2024-08-20 23:58] VITALS: BP 148/85; PULSE 65; RESP 16; TEMP 36.7; O2SAT 99
== END 2024-08-21 00:03 | disposition home or self-care (01) ==
PROVIDERS: Registered Nurse Emergency; Emergency Provider Emergency Medicine
DX: K85.90 Acute pancreatitis without necrosis or infection, unspecified (principal); R10.2 Pelvic and perineal pain; M25.512 Pain in left shoulder; M25.511 Pain in right shoulder; F17.210 Nicotine dependence, cigarettes, uncomplicated; Z79.899 Other long term (current) drug therapy; Z51.81 Encounter for therapeutic drug level monitoring
CPT/HCPCS: 36415; 80053; 80307; 82150; 83690; 84478; 84484; 85025; 85610; 93005; 99283; 99285

== ENCOUNTER → 2024-08-20 20:41 | Outpatient (BNV) | payer OTHER, SELFPAY | PROVIDERS: Emergency Provider Emergency Medicine; Visit Provider Internal Medicine Cardiovascular Disease | DX: M25.512 Pain in left shoulder (principal) | CPT/HCPCS: 93010 ==